=== PATIENT | female | born 1940 | race Caucasian/White ===

== ENCOUNTER 2019-09-21 13:17 | Outpatient (CLI) | payer MEDICARE, OTHER, SELFPAY ==
--- NOTE | 2019-09-21 18:57 | ONC CON_ITS ---
Dr. Angel New Patient Note Patient: Sophie Lopez Unit #: [id number]: 1940 Dicatated By: Fernando Angel M.D.Date of Visit: Sep 21, 2019 Onc MED New Patient/Consult Referring Physician: Dr. Fernando Luo M.D. Chief Complaint: Breast cancer. 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 She has a history of having undergone left modified radical mastectomy for node positive, ER positive breast cancer in 1990. More detailed information pertaining that procedure is not available. She did receive adjuvant chemotherapy with 6 cycles of CAF followed by 5 years of adjuvant hormonal therapy with tamoxifen. In December 2015 she was found to have an abnormal mammogram of the right breast. Ultrasound-guided needle core biopsy of a right breast mass at the 3 o'clock position on 02/02/2016 showed grade 1 infiltrating ductal carcinoma which was ER positive at 91% and MI positive at 92%. It was negative for overexpression of HER-2/marissa by IHC and by FISH. Core needle biopsy of a right axillary lymph node showed metastatic adenocarcinoma. She was given neoadjuvant hormonal therapy with anastrozole, and she then underwent right modified radical mastectomy on 06/27/2016. Pathology on the mastectomy showed grade 3 infiltrating ductal carcinoma measuring 1.9 x 1.2 cm, located in the upper middle region of the breast. There was involvement in 34 of 37 lymph nodes. She was given 4 cycles of adjuvant chemotherapy following the mastectomy, though the available records do not indicate the specific regimen which was administered. She then underwent postoperative radiation to the right chest wall, supraclavicular fossa, and axilla. She also continued adjuvant hormonal therapy with anastrozole. A restaging PET/CT on 10/26/2018 showed several sites of metastatic disease in the bone, including the T7 and L1 vertebral bodies, possible involvement in the L4 vertebral body, and involvement in the left ischium. At that point her hormonal therapy was changed to fulvestrant, which she has continued monthly. In March 2019 she was given some additional radiation for a small area of recurrence in the right chest wall. Her other medical illnesses have been limited to hypertension, GERD, and some chronic anxiety. She is a non-smoker. She is seen now for further management of the breast cancer. She has not been feeling good generally. She says her energy is not very good, and her activity is limited. ECOG score is 2. Her appetite is fair, but she has been losing weight, at least 6 pounds since April. She has not been having fever, night sweats, or hot flashes. Recently she has started having more pain, mainly across the lower back, in the shoulders, and to some extent in the chest area. She does complain that it hurts when she coughs or takes a deep breath. She has some shortness of breath. She has no GI/ complaints other than she has to get up at night 3 or 4 times to void. She does not complain of headache. She does complain of shaking, though it is variable. It does seem to get somewhat worse as the day goes on, and at times she does shake real bad. She also complains that she tends to be nervous. She does not complain of headache. She has some numbness in her right hand. She has no other focal neurologic symptoms. Past Medical History: Her medical history includes breast cancer, chronic anxiety, gastroesophageal reflux disease, and hypertension. Past Surgical History: Her surgical/procedural history includes hysterectomy, lower extremity vein stripping bilaterally, right modified radical mastectomy in 2017, partial colectomy for polyps in 2013, and left modified radical mastectomy in 1990. Medications: amLODIPine Besylate 1 Tablet (of 10 mg) Oral at bedtime, Bystolic 1 Tablet (of 10 mg) Oral daily, clonazePAM 1 Tablet (of 0.5 mg) Oral at bedtime, Glucosamine 2 Capsule Oral daily, HYDROcodone-Acetaminophen 1 Tablet (of 5-325 mg) Oral b.i.d. PRN, Ibuprofen 1 Tablet (of 200 mg) Oral at bedtime, Multivitamin 1 Tablet Oral daily, Omeprazole 1 Tablet (of 20 mg) Tablet, enteric coated Oral daily, Potassium Chloride ER 1 Capsule (of 10 meq) Capsule, controlled release Oral daily, Sertraline HCl 1 Tablet (of 25 mg) Oral daily, Tums 1 Tablet, chewable Oral PRN, Vitamin E 1 Capsule Oral daily Allergies: No Known Allergies. Social History: Ms. Lopez is and she is retired. She is a non-smoker. She does not drink alcohol. Family History: Father of stroke age 62. Mother at age 96 due to complications following hip fracture. She apparently also had cancer, type unknown to the patient. A brother of bone and liver cancer, primary site unknown to the patient. A paternal aunt had breast cancer. And 80 year-old sister has dementia and multiple sclerosis. Review Of Symptoms: Constitutional - She has not been feeling good. Her energy is very poor. She is mainly sedentary at home. Her appetite is poor and weight is down. No fever, night sweats, or hot flashes. ECOG score is 2, Eyes - No recent change in vision, ENMT - No sinus congestion/drainage. No mouth sores. No sore throat or difficulty swallowing. Her hearing has decreased, Hematologic/Lymphatic - No abnormal bruising or bleeding, Respiratory - She gets short of breath. She has a cough with pleuritic pain. No hemoptysis, Cardiovascular - No angina pain. No palpitations, Gastrointestinal - No nausea or vomiting. Her heartburn/acid is adequately managed with omeprazole. No diarrhea or constipation. No blood in the stool or black stools, Genitourinary (F) - No dysuria or hematuria. She has urinary frequency at night. No urgency or incontinence, Musculoskeletal - She is having pain across the middle of her back and in her shoulders, Integumentary - No skin complications, Neurologic - No headache or dizziness. She has numbness to her right fingers. No other focal neurologic symptoms. She has frequent episodes of shaking, Psychiatric - She has some anxiety. No depression. No insomnia. Vital Signs: Performed on Sep 21, 2019 13:52: 6, 20.69, 1.54 sq.m, 63.00 in, 96 %, 74 /min, 24 /min, 144/70 mm(hg) (HIGH), 98.8 F, and 116.8 lbs (HIGH). Physical Examination: Constitutional - She appears generally frail, Eyes - Sclerae nonicteric. Conjunctivae clear, ENMT - No lesions noted in the oral cavity, Neck - No mass or thyromegaly, Hematologic/Lymphatic - No cervical or clavicular axillary adenopathy, Respiratory - Lungs are clear with good air movement bilaterally, Cardiovascular - Heart rhythm is regular. There is no murmur, gallop, or rub noted, Breasts - There is residual nodularity/firmness and hyperpigmentation at the site of the recent radiation in the mid to lateral aspect of her right mastectomy incision. There are no other chest wall lesions noted. There is no axillary adenopathy, Abdomen - Soft and non-tender. Liver and spleen are not enlarged. There is no abdominal mass or ascites noted and there is no inguinal adenopathy, Back/Spine - No spine or CVA tenderness noted, Extremities - No edema. Pedal pulses are palpable bilaterally, Integumentary - No rashes. No suspicious skin lesions noted, Neurologic - She is generally shaky, though she does not appear to have actual tremor. There are no focal neurologic deficits noted. Lab/Imaging: Brain MRI on 06/16/2019 showed areas of enhancing nodularity adjacent to the dura in the right frontal and left frontoparietal regions. These appeared unchanged compared to previous study in November 2018. The reported differential included small meningiomas or metastatic disease. Continued follow-up was recommended. Impression: 1. Patient with grade 3 infiltrating ductal carcinoma of the right breast, ER/MI positive and HER-2/marissa negative, initially diagnosed in January 2016. 2. She was given neoadjuvant hormonal therapy followed by right modified radical mastectomy on 06/27/2016. Her disease was pathologic stage IIIB (pT1c, pN3, M0). She was given adjuvant chemotherapy followed by postoperative radiation to the right chest wall, supraclavicular fossa, and axilla, and she then continued adjuvant hormonal therapy with anastrozole. 3. She had PET/CT evidence of stage IV disease in October 2018 with multiple sites of bone involvement. Her hormonal therapy at that point was changed to fulvestrant. 4. She received additional radiation to the right chest wall for a small area of recurrence in March 2019. 5. She had previous treatment for node positive, ER positive infiltrating ductal carcinoma of the left breast which included left modified radical mastectomy 1990 followed by adjuvant chemotherapy with 6 cycles of CAF followed by 5 years of adjuvant tamoxifen. Her other medical illnesses include: 6. Hypertension. 7. GERD. 8. Chronic anxiety. Plan: As I suspect that she is showing disease progression on the fulvestrant, I will schedule restaging PET/CT. I discussed some options for further treatment, which will most likely include further hormonal therapy with exemestane but in combination with a CK4/6 inhibitor. I will also likely recommend starting monthly denosumab injections for the metastatic bone involvement. In addition, I will request a next generation sequencing study from the mastectomy specimen to determine whether she also may be eligible for any targeted therapies. Signed By: Fernando Angel M.D. <<Signature on File>>
== END 2019-09-21 13:18 | disposition home or self-care (01) ==
LOC: ONCMED 13:21
PROVIDERS: PCP Internal Medicine; Visit Provider Internal Medicine Medical Oncology
DX: C50.812 Malignant neoplasm of overlapping sites of left female breast (principal); Z17.0 Estrogen receptor positive status [ER+]; C79.51 Secondary malignant neoplasm of bone; C77.3 Secondary and unspecified malignant neoplasm of axilla and upper limb lymph nodes; I10 Essential (primary) hypertension; K21.9 Gastro-esophageal reflux disease without esophagitis; F41.9 Anxiety disorder, unspecified; Z90.13 Acquired absence of bilateral breasts and nipples; Z85.3 Personal history of malignant neoplasm of breast; Z92.21 Personal history of antineoplastic chemotherapy; Z79.818 Long term (current) use of other agents affecting estrogen receptors and estrogen levels; Z92.3 Personal history of irradiation
CPT/HCPCS: 99205

== ENCOUNTER 2019-09-29 10:49 | Outpatient (RCR) | payer MEDICARE, OTHER, SELFPAY ==
[2019-09-28] MEDS: morphine 4 mg/mL SDV 1 mL 2 MG SUBCUT (16:57)
--- NOTE | 2019-09-28 20:12 | ONC FU_ITS ---
Dr. Angel Patient Follow-Up Note Patient: Sophie Lopez Unit #: [id number]: 1940 Dicatated By: Fernando Angel M.D.Date of Visit:Sep 28, 2019 Onc Med Follow-up/Prog Note Chief Complaint: Breast cancer. 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 She has a history of having undergone left modified radical mastectomy for node positive, ER positive breast cancer in 1990. More detailed information pertaining that procedure is not available. She did receive adjuvant chemotherapy with 6 cycles of CAF followed by 5 years of adjuvant hormonal therapy with tamoxifen. In December 2015 she was found to have an abnormal mammogram of the right breast. Ultrasound-guided needle core biopsy of a right breast mass at the 3 o'clock position on 02/02/2016 showed grade 1 infiltrating ductal carcinoma which was ER positive at 91% and AK positive at 92%. It was negative for overexpression of HER-2/marissa by IHC and by FISH. Core needle biopsy of a right axillary lymph node showed metastatic adenocarcinoma. She was given neoadjuvant hormonal therapy with anastrozole, and she then underwent right modified radical mastectomy on 06/27/2016. Pathology on the mastectomy showed grade 3 infiltrating ductal carcinoma measuring 1.9 x 1.2 cm, located in the upper middle region of the breast. There was involvement in 34 of 37 lymph nodes. She was given 4 cycles of adjuvant chemotherapy following the mastectomy, though the available records do not indicate the specific regimen which was administered. She then underwent postoperative radiation to the right chest wall, supraclavicular fossa, and axilla. She also continued adjuvant hormonal therapy with anastrozole. A restaging PET/CT on 10/26/2018 showed several sites of metastatic disease in the bone, including the T7 and L1 vertebral bodies, possible involvement in the L4 vertebral body, and involvement in the left ischium. At that point her hormonal therapy was changed to fulvestrant, which she has continued monthly. In March 2019 she was given some additional radiation for a small area of recurrence in the right chest wall. Her other medical illnesses have been limited to hypertension, GERD, and some chronic anxiety. She is a non-smoker. I had seen her on 09/21/2019 for further management of her breast cancer. At that time she was having pain in multiple areas, and a subsequent staging PET/CT on 09/25/2019 confirmed significant disease progression with evidence of widespread osseous metastatic disease. An index lesion in the left sacrum measured 3.0 cm with SUV 7.1. There was noted to be involvement throughout the spinal column, including destruction of the T6 vertebral body with pathologic fracture. Other sites of involvement include the pelvis, proximal femurs, left clavicle, and proximal humeri. Inhomogeneous activity was noted in the liver, but with no discrete lesion identified. She returns for a follow-up visit. She has not been feeling good. She reports having less and less energy. Her activity is very limited. ECOG score is 3. Her appetite is not good. She occasionally has nausea. She has shortness of breath. She has pain in multiple areas, the most significant of which have been in the area of the right shoulder blade, the mid back on the left side, and the sternal area. She does get some relief with hydrocodone 5/APAP 325, but she has been taking it only twice daily due to concerns of opiate related side effects. Medications: amLODIPine Besylate 1 Tablet (of 10 mg) Oral at bedtime, Bystolic 1 Tablet (of 10 mg) Oral daily, clonazePAM 1 Tablet (of 0.5 mg) Oral at bedtime, Glucosamine 2 Capsule Oral daily, HYDROcodone-Acetaminophen 1 Tablet (of 5-325 mg) Oral b.i.d. PRN, Ibuprofen 1 Tablet (of 200 mg) Oral at bedtime, Multivitamin 1 Tablet Oral daily, Omeprazole 1 Tablet (of 20 mg) Tablet, enteric coated Oral daily, Potassium Chloride ER 1 Capsule (of 10 meq) Capsule, controlled release Oral daily, Sertraline HCl 1 Tablet (of 25 mg) Oral daily, Tums 1 Tablet, chewable Oral PRN, Vitamin E 1 Capsule Oral daily Allergies: No Known Allergies. Vital Signs: Performed on Sep 28, 2019 16:18 Height - 63.00 in Weight - 115.4 lbs (LOW) BSA - 1.53 sq.m BMI - 20.44 Temperature - 98.1 F (LOW) Pulse - 73 /min Respiration - 22 /min BP - 174/70 mm(hg) (HIGH) O2 Sat - 96 % Pain - 8 Impression: 1. Patient with grade 3 infiltrating ductal carcinoma of the right breast, ER/AK positive and HER-2/marissa negative, initially diagnosed in January 2016. 2. She was given neoadjuvant hormonal therapy followed by right modified radical mastectomy on 06/27/2016. Her disease was pathologic stage IIIB (pT1c, pN3, M0). She was given adjuvant chemotherapy followed by postoperative radiation to the right chest wall, supraclavicular fossa, and axilla, and she then continued adjuvant hormonal therapy with anastrozole. 3. She had PET/CT evidence of stage IV disease in October 2018 with multiple sites of bone involvement. Her hormonal therapy at that point was changed to fulvestrant. 4. She received additional radiation to the right chest wall for a small area of recurrence in March 2019. 5. She had previous treatment for node positive, ER positive infiltrating ductal carcinoma of the left breast which included left modified radical mastectomy 1990 followed by adjuvant chemotherapy with 6 cycles of CAF followed by 5 years of adjuvant tamoxifen. Her other medical illnesses include: 6. Hypertension. 7. GERD. 8. Chronic anxiety. The patient has evidence of disease progression on fulvestrant with her restaging PET/CT on 09/25/2019 showing evidence of widespread bony metastatic disease. There was associated destruction of the T6 vertebral body with pathologic fracture. She is having significant pain at multiple sites and she has fairly rapidly declining performance status. 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 Plan: The PET/CT findings were reviewed with the patient and her family, and we discussed the clinical implications. She has obvious disease progression, and with her prior chemotherapy exposure and declining performance status, my preference is to proceed with a trial of further hormonal therapy with exemestane 25 mg daily in combination with abemaciclib at a standard dosage of 150 mg twice daily, subject to verification of insurance coverage. I also will plan to start monthly denosumab injections when she returns to initiate her treatment. In the meantime, I will review the PET/CT with Dr. Hurst for consideration of palliative radiation. At her request, she is being given a small dose of morphine subcutaneously prior to returning home, as she has been having significant pain during the visit. Depending on how she tolerates it, I may consider changing her opiate to a small dose of either more phone or hydromorphone. [id number] time with patient was more than 30 minutes, greater than 50% spent in counseling/discussion. Signed By: Fernando Angel M.D. <<Signature on File>>
--- NOTE | 2019-09-30 11:38 | N.ONRAD NP_ITS ---
Radiation Oncology New Patient Visit Patient: Sophie Lopez MR#: [id number] : 1940 Age: 79 Sex: Female Dictated by: Dr. Shiva Hurst Date of Service: 09/29/2019 Referring Physician(s) : Dr. Angel Diagnosis: -) Right Breast (dx 01/2016): ypT1c ypN3a grade 3 infiltrating ductal carcinoma, ER/ME strongly positive, HER-2/marissa negative. She was treated with neoadjuvant endocrine therapy (anastrozole) followed by a right modified radical mastectomy (06/2016). Pathology revealed grade 3 infiltrating ductal carcinoma measuring 1.9 x 1.2 cm, negative postsurgical margins, positive lymphovascular invasion, and 34 of 37 lymph nodes were positive. She then received 4 cycles of adjuvant chemotherapy followed by comprehensive radiation therapy to the right chest wall and draining lymphatics (March in [place] ~33 fractions in 2016). This was followed by further endocrine therapy. Per medical report, the patient experienced right chest wall tumor recurrence in 03/2019 which was treated with surgical resection and ???6 additional fractions of radiation??? (complete radiation records have been requested). In October 2018, she had PET/CT evidence of metastasis in multiple sites of bone. She was then treated with fulvestrant. -) Left Breast: Status post left modified radical mastectomy (06/1990). Pathology revealed infiltrating ductal carcinoma, 2 out of 9 lymph nodes positive, ER strongly positive, ME negative. She then received 6 cycles of CAF adjuvant systemic therapy followed by 5 years of adjuvant endocrine therapy via a clinical trial (tamoxifen). The patient believes that she did not receive adjuvant radiation therapy. Complete medical records are unavailable to me. Purpose of Visit: Discuss the role of radiotherapy with palliative intent. History of Present Illness: The patient is a 79-year-old female with the above diagnosis and summarized treatment history. She is seen today in consultation due to severe back pain. Dr. Angel has recently prescribed opiate pain medication. Her most recent PET/CT (09/25/2019) revealed widespread FDG avid osseous metastatic disease, a pathologic fracture of T6, questionable activity in segment 4A/B and the left lobe of the liver, and a left sacral lesion measuring 3 cm. The patient currently lives with her who is unable to provide adequate care, and now the patient's daughter is currently visiting from [place]. Imaging Review: I reviewed the radiographic images discussed above. Current Medications: Abemaciclib, amLODIPine Besylate, bystolic, clonazePAM, dilaudid, glucosamine, hYDROcodone-Acetaminophen, ibuprofen, multivitamin, omeprazole, potassium Chloride ER, sertraline HCl, tums, vitamin E. Allergies: No Known Allergies Medical History: - Anxiety, - breast cancer, - gastroesophageal reflux disease, - hypertension. No history of collagen vascular disease. No previous radiation therapy. Surgical History: Hysterectomy, left modified radical mastectomy in 1990, lower extremity vein stripping bilaterally, partial colectomy for polyps in 2013 and right modified radical mastectomy on 06/27/2016. Family History: Father is at age 62 having experienced cerebral vascualr accident. Mother is at age 96 having experienced broken hip. Brother is having experienced bone cancer, and liver cancer. Sister is alive having experienced alzhiemers. Father of stroke age 62. Mother at age 96 due to complications following hip fracture. She apparently also had cancer, type unknown to the patient. A brother of bone and liver cancer, primary site unknown to the patient. A paternal aunt had breast cancer. And 80 year-old sister has dementia and multiple sclerosis. Social History: Last screened on 09/28/2019 - Never smoked. Last screened on 09/28/2019 - Never drank. Current Complaints / Review of Systems: Constitutional - Complains of a poor appetite. Complains of moderate fatigue. Denies fever, night sweats and change in weight. Allergic/Immunologic - No known allergies. Eyes - Denies blurred vision. ENMT - Complains of a moderate hearing impairment. Complains of sputum production Reports increased sputum in mouth of the morning. Sleeps with mouth open.. Denies dysphagia, ear pain, epistaxis, mouth dryness, oral bleeding, altered taste and tinnitus. Neck - Denies neck masses, neck pain, decreased range of motion and swelling of the neck. Integumentary - Complains of bruising Bruises easily.. Complains of mildly dry skin. Denies rash. Breasts - Complains of a right breast mass(es) Left breast mastectomy at age 51 years, right breast mastectomy in 06/2016.. Complains of moderate pain in the right breast Right mastectomy site. Cardiovascular - Denies arrhythmias, chest pain, dyspnea, edema, orthopnea and palpitations. Respiratory - Denies cough, dyspnea, hemoptysis, hiccoughs, pleuritic chest pain and wheezing. Gastrointestinal - Complains of moderate nausea which is relieved by rest. Denies abdominal pain, change in bowel habits, constipation, diarrhea, heartburn / dyspepsia, hematochezia, hemorrhoids, melena / GI bleeding, pain / cramping and vomiting. Genitourinary (F) - Complains of occasional incontinence associated with urgency. Complains of nocturia 1-3 time/night. Complains of urgency associated with nocturia. Denies dysuria, frequency, genital masses, hematuria and urine color change. Musculoskeletal - Complains of severe bone pain which is relieved or lessened by narcotic analgesics and this condition is worsening. Complains of severe joint pain. Complains of muscle weakness which is mild in nature associated with pain. Complains of decreased range of motion associated with pain which is relieved by pain management. Neurologic - Complains of abnormal gait Gait is unsteady, needs assistance.. Denies disorientation, dizziness, headaches, insomnia, motor weakness, sensory problems, paralysis, seizure and stroke. Psychiatric - Complains of depression Taking Sertraline, is improving. Endocrine - Denies diabetes, hot flashes and thyroid disease. Hematologic/Lymphatic - Complains of easy bruising Bruises easily.. Denies tender or enlarged lymph nodes.. Vital Signs: Performed on 09/29/2019 3:55 PM BMI - 20.371 kg/m2, Height - 63.00 in, Weight - 115.0 lbs, Temperature - 98.7 f, Pulse - 67, Respiration - 18, O2 Sat - 97 % and BP - 138/ 73 mm(hg). Physical Exam: GENERAL:??? The patient is alert, and in no acute distress. HEENT:??? Head is normocephalic. Face is symmetric. External ocular movements are intact. Sclera and conjunctivae are non erythematous. NECK:??? Trachea is midline.??? Thyroid is not enlarged by palpation.??? LYMPH NODES:??? There is no cervical, supraclavicular, or axillary adenopathy bilaterally. LUNGS:??? Clear to auscultation bilaterally. Respiratory movement is unlabored. Tenderness to gentle palpation in the cervical spine and mid to low thoracic spine is appreciated. HEART:??? Regular rate and rhythm. BREASTS:???A bilateral mastectomy scar is appreciated. The patient has tenderness, nodularity and subcutaneous fibrotic changes most prominent in the right lateral mastectomy scar. She has no clinical evidence of tumor erosion through the skin. ABDOMEN:??? Soft, nontender, without palpable mass.??? No hepatosplenomegaly. EXTREMITIES:??? The patient has difficulty lifting her bilateral arms. 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 Cranial nerves II-XII are intact and without focal deficits.??? Psych: Affect is normal. Skin: Cursory review of the skin reveals no obvious lesions concerning for malignancy. Performance Status: 3 - Capable of only limited self-care, confined to bed or chair more than 50% of waking hours. (ECOG) Assessment/Plan: The patient is a 79-year-old female with a history of bilateral breast cancer (left 1990; right 01/2016 as described above). She was first known to have radiographic evidence of osseous metastasis in 2018, and now she has widespread metastatic progression on fulvestrant per a recent PET/CT (09/25/2019). The patient is severely symptomatic with respect to back pain. On physical exam today, she shared that the pain is most severe in the cervical spine and mid/low thoracic spine. This correlates to FDG avid disease seen on PET/CT We discussed palliative radiation therapy to the C5-C8; T5-T9; and [id number] to a total dose of 30 Gy in 10 fractions. We discussed a 60-80% chance of objectively improving her pain as measured by a reduced need for pain medication, at least until progression again occurs. We discussed radiation treatment logistics, and potential acute and late side effects in detail (i.e., fatigue and esophagitis). The patient verbalized understanding of the risks/benefits of radiotherapy and the patient has agreed to proceed as recommended. Therefore the plan is: -) Obtain prior radiation records -) Begin Radiation Therapy planning next Friday. -) In light of the prior radiation therapy, we will need to utilize IMRT techniques and fuse the CT simulation data set with the most recent PET/CT. Signed by: 09/30/2019 11:36:29 AM <<Signature on File>> Time spent with patient: CPT Code: CPT Code:
== END 2019-10-02 06:00 | disposition home or self-care (01) ==
LOC: ONCMED 10:49
PROVIDERS: PCP Internal Medicine; Visit Provider Radiology Radiation Oncology
DX: C50.811 Malignant neoplasm of overlapping sites of right female breast (principal); C79.51 Secondary malignant neoplasm of bone; C77.3 Secondary and unspecified malignant neoplasm of axilla and upper limb lymph nodes; G89.3 Neoplasm related pain (acute) (chronic); Z17.0 Estrogen receptor positive status [ER+]; Z90.13 Acquired absence of bilateral breasts and nipples; Z85.3 Personal history of malignant neoplasm of breast; K21.9 Gastro-esophageal reflux disease without esophagitis; F41.9 Anxiety disorder, unspecified; Z79.891 Long term (current) use of opiate analgesic; Z92.21 Personal history of antineoplastic chemotherapy; Z92.23 Personal history of estrogen therapy
CPT/HCPCS: 96372; 99214; 99215; J2270

== ENCOUNTER 2019-10-02 14:06 | Inpatient (IN) | payer MEDICARE, OTHER, SELFPAY ==
[2019-10-02 14:10] VITALS: BP 139/65; PULSE 70; RESP 16; TEMP 36.5; O2SAT 90; BMI 24.7
--- NOTE | 2019-10-02 15:06 | CTR_ITS ---
PROCEDURE INFORMATION: Exam: CT Head Without And With Contrast Exam date and time: 10/02/2019 4:07 PM Age: 79 years old Clinical indication: Speech disturbance and weakness, extremity; Right; Unspecified; Patient HX: HX of breast CA w mets C/O speech issues and R sided weakness; Additional info: Metastatic breast CA, AMS, R sided weakness, slurred speach TECHNIQUE: Imaging protocol: Computed tomography of the head without and with intravenous contrast. Radiation optimization: All CT scans at this facility use at least one of these dose optimization techniques: automated exposure control; mA and/or kV adjustment per patient size (includes targeted exams where dose is matched to clinical indication); or iterative reconstruction. Contrast material: VISI 320; Contrast volume: 95 ml; Contrast route: INTRAVENOUS (IV); COMPARISON: MRI Head w/wo* [id number] 06/16/2019 1:00 PM RADIATION DOSE METRICS: Total DLP (mGy-cm): 1265.29 FINDINGS: Brain: There is volume loss and periventricular low density compatible with chronic small vessel disease changes. There is no acute hemorrhage, edema or mass effect. Ventricles: Normal. No ventriculomegaly. Bones/joints: Unremarkable. No acute fracture. Sinuses: Visualized sinuses are unremarkable. No fluid levels. Mastoid air cells: Visualized mastoid air cells are well aerated. Soft tissues: Unremarkable. Other findings: No mass. No enhancing lesion. CT/CT head wo/w con [id number] IMPRESSION: No acute intracranial abnormality. No enhancing mass. Radiation Dose CTDIVOL = (mGy): DLP = 1265.29 (mGy-cm)
--- NOTE | 2019-10-02 15:08 | XRR_ITS ---
PROCEDURE INFORMATION: Exam: XR Chest, 1 View Exam date and time: 10/02/2019 3:09 PM Age: 79 years old Clinical indication: Cough and dyspnea; Additional info: Dyspnea/cough TECHNIQUE: Imaging protocol: XR of the chest Views: 1 view. COMPARISON: No relevant prior studies available. FINDINGS: Lungs: There is interstitial prominence compatible with fibrosis, bronchitis, viral pneumonitis or mild interstitial edema. Pleural space: Unremarkable. No pleural effusion. No pneumothorax. Heart/Mediastinum: The heart is enlarged. Bones/joints: There is osteopenia with diffuse degenerative changes. There is an acute fracture of the lateral aspect of the right 8th rib. Probable old left posterior rib fracture deformities are noted. There are clips in the bilateral axilla. XR/XR chest 1V portable [id number] IMPRESSION: 1. There is interstitial prominence compatible with fibrosis, bronchitis, viral pneumonitis or mild interstitial edema. 2. There is an acute fracture of the lateral aspect of the right 8th rib. No pneumothorax.
--- NOTE | 2019-10-02 15:08 | ECG_ITS ---
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 Measurements Intervals [place] Rate: 62 P: 34 NH: 217 QRS: -24 QRSD: 95 T: 47 QT: 405 QTc: 413 Interpretive Statements SINUS RHYTHM WITH FIRST DEGREE AV BLOCK VOLTAGE CRITERIA FOR LVH [MEETS CRITERIA IN ONE OF: R(aVL), S(V1), R(V5), R(V5/V6)+S(V1)] INFERIOR MYOCARDIAL INFARCTION , OF INDETERMINATE AGE [40+ ms Q WAVE AND/OR ST/T ABNORMALITY IN II/aVF] No previous ECG available for comparison Electronically Signed On 10-03-2019 18:10:44 CDT by Delonte Finn M.D. [id number]
--- NOTE | 2019-10-02 15:12 | W.ED.NEUROSD ---
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 She also has severe middle back pain consistent with a T6 pathologic compression fracture seen on previous imaging. Her accompanies her and provides much of the history. Onset (ago): day(s) Timing confirmed by: spouse Location: speech, right face and right arm Severity: severe Quality: weak and constant Relieving factors: none Exacerbating factors: none Context: gradual onset On Anticoagulants: No Associated symptoms: Deny no associated symptoms, chest pain, cough, diaphoresis, fevers/chills, nausea or vomiting Treatments Prior to Arrival: none Review of Systems Const: Denies: diaphoresis ENMT: Denies: throat pain, ear or mastoid pain, nasal discharge or nasal congestion Card: Denies: chest pain Resp: Denies: dyspnea, productive cough or non-productive cough GI: Denies: abdominal pain, nausea, vomiting, hematemesis, coffee ground emesis, diarrhea, constipation, bloating, hematochezia or melena : Denies: flank pain, difficulty voiding, dysuria, urinary frequency or urinary urgency Skin/Breast: Denies: rash or pruritus PFSH ED PFSH: Medical History Anxiety Breast cancer metastasized to bone (~12/2015) Grade 3 infiltrating ductal carcinoma of the right breast, ER/TX positive and HER-2/marissa negative. Received adjuvant chemo, radiation, hormonal therapy. GERD (gastroesophageal reflux disease) Hypertension Surgical History History of hysterectomy History of modified radical mastectomy of left breast (~1990) History of modified radical mastectomy of right breast (~06/2016) History of partial colectomy (~2013) for polyps History of vein stripping bilateral Family History Father Stroke Mother Cancer Brother Cancer Sister Dementia Multiple sclerosis Family/Other Breast cancer Social History Smoking and tobacco status: never smoked Alcohol intake: never Household members: spouse Marital status: NIH stroke score NIHSS: Level Of Consciousness - 1a: 2 Level Of Consciousness Questions - 1b: One Correct Level Of Consciousness Commands - 1c: One Correct Best Gaze - 2: Normal Visual Diaz - 3: No Visual Loss Facial Palsy - 4: Normal Motor Arm Right - 5: No Drift Motor Arm Left - 5: Drift Motor Leg Right - 6: No Drift Motor Leg Left - 6: Drift Limb Ataxia - 7: Present In Two Limbs Sensory - 8: Mild To Moderate Loss Best Language - 9: Mild/Moderate Aphasia Dysarthia - 10: Mild/Moderate Dysarthia Extinction And Inattention - 11: 1 Score: Total Score: 12 Physical Exam Const: COMMON NORMALS: no acute distress GENERAL APPEARANCE: cooperative and comfortable HENMT: COMMON NORMALS: normocephalic, atraumatic and hearing grossly normal bilaterally HEAD & SCALP: normocephalic and atraumatic Eye: COMMON NORMALS: Equal, round and reactive pupils present, EOMs intact bilaterally, conjunctivae normal and no scleral icterus CONJUNCTIVA: Yes conjunctivae normal PUPIL: Yes Equal, round and reactive pupils present Neck/C-Spine: COMMON NORMALS: full ROM, no lymphadenopathy, supple and no JVD Lymph: LYMPHATIC: no lymphadenopathy noted and no lymphedema noted Resp: COMMON NORMALS: normal respiratory effort, No retractions, No use of accessory muscles and clear to auscultation bilaterally AUSCULTATION: clear to auscultation bilaterally Cardio: COMMON NORMALS: no JVD, regular rate, regular rhythm and No murmurs present (Cardio) RATE: regular rate RHYTHM: regular rhythm GI: COMMON NORMALS: Soft to palpation and No hepatosplenomegaly present AUSCULTATION: Yes normoactive bowel sounds PALPATION: Yes Soft to palpation, No Tenderness to palpation present (GI), No Guarding due to palpation present (GI) and Yes No hepatosplenomegaly present Extremity: COMMON NORMALS: normal to inspection, capillary refill normal, no clubbing, cyanosis or edema, no calf tenderness and no pedal edema Skin: COMMON NORMALS: no rashes or lesions noted GENERAL SKIN EXAM: no rashes or lesions noted Course Vital Signs: Vital signs: Vital Signs Temperature 97.8 F 10/05/19 04:00 Pulse Rate 68 10/05/19 04:00 Respiratory Rate 18 10/05/19 04:00 Blood Pressure 150/69 10/05/19 04:00 Pulse Oximetry 95 10/05/19 03:46 MDM - Neuro Symptoms/Deficit MDM Narrative: Medical decision making narrative: Some of her stroke score I think can be attributed to generalized deterioration and overall weakness. Although she does seem to by all accounts have suffered a stroke a timeframe excludes this from any kind of intervention at this point as well as her history of cancer. Patient is severely limited in her ability to manage her own ADLs and will think her can care for her at this point. Think she needs to be admitted for further evaluation for stroke and assessment of her ability to manage ADLs and pain control. Some of this could be due to an increase in narcotics affecting her ability to be scored for the stroke score. Discussed with Dr. Angel who initially sent her over also discussed with Dr. Singh will go ahead and admit Lab Data: Labs: Lab Results 10/02/19 10/02/19 10/02/19 Range/Units 01:40 15:25 15:25 WBC 9.3 (4.0-10.0) 10^3/ uL RBC 3.55 L (4.1-5.3) 10^6/u L Hgb 10.4 L (11.5-15.3) g/dL Hct 32.7 L (37.0-47.0) % MCV 92.1 (81-99) fL MCH 29.3 (28.0-34.0) pg MCHC 31.8 (30.0-36.0) g/dL RDW 17.5 H (12.1-15.1) % Plt Count 47 L (130-400) 10^3/c mm MPV 9.3 (7.4-10.4) fL Neut % (Auto) 70.2 % Lymph % (Auto) 14.3 % [place] % (Auto) 12.2 % Eos % (Auto) 2.4 % Baso % (Auto) 0.5 % Neut # (Auto) 6.49 (1.8-7.7) 10^3/u L Lymph # (Auto) 1.3 (0.8-4.8) 10^3/u L [place] # (Auto) 1.1 H (0.2-0.9) 10^3/u L Eos # (Auto) 0.2 (0.0-0.8) 10^3/u L Baso # (Auto) 0.1 (0.0-0.1) 10^3/u L Nucleated RBC % (a uto) 0.4 % Nucleated RBCs # 0.0 /100WBC Sodium (136-145) mmol/L Potassium (3.5-5.1) mmol/L Chloride (98-107) mmol/L Carbon Dioxide (22-29) mmol/L Anion Gap (5-19) BUN (8-23) mg/dL Creatinine (0.5-0.9) mg/dL GFR Calculation Glucose (65-115) mg/dL Calculated Osmolal ity (285-295) mOsm/k g Lactic Acid 0.8 (0.5-2.2) mmol/L Calcium (8.5-10.5) mg/dL Total Bilirubin (0.15-1.2) mg/dL AST (0-32) U/L ALT (0-33) U/L Alkaline Phosphata se (35-105) IU/L Creatine Kinase (26-192) U/L Total Protein (6.6-8.7) g/dL Albumin (3.5-5.2) g/dL Globulin (1.3-4.6) g/dL Lipase (13-60) U/L Urine Color Yellow (Yellow) Urine Appearance Sl hazy (CLEAR) Urine pH 5 (5-7) Ur Specific Gravit y 1.015 (1.005-1.030) Urine Protein Neg (Negative) Urine Glucose (UA) Norm (Normal) Urine Ketones Negative (Negative) Urine Blood Neg (Negative) Urine Nitrate Positive H (Negative) Urine Bilirubin Neg (NEGATIVE) Urine Urobilinogen Norm (Negative) mg/dL Ur Leukocyte Malini ase Trace H (Negative) Urine RBC 0-4 H (0-2) /hpf Urine WBC 15-25 H (0-5) /hpf Ur Squamous Epith Cells 0-4 H (0-5) Amorphous Sediment 1+ Urine Bacteria 3+ H (NONE) 08/15/20 Range/Units 15:25 WBC (4.0-10.0) 10^3/ uL RBC (4.1-5.3) 10^6/u L Hgb (11.5-15.3) g/dL Hct (37.0-47.0) % MCV (81-99) fL MCH (28.0-34.0) pg MCHC (30.0-36.0) g/dL RDW (12.1-15.1) % Plt Count (130-400) 10^3/c mm MPV (7.4-10.4) fL Neut % (Auto) % Lymph % (Auto) % [place] % (Auto) % Eos % (Auto) % Baso % (Auto) % Neut # (Auto) (1.8-7.7) 10^3/u L Lymph # (Auto) (0.8-4.8) 10^3/u L [place] # (Auto) (0.2-0.9) 10^3/u L Eos # (Auto) (0.0-0.8) 10^3/u L Baso # (Auto) (0.0-0.1) 10^3/u L Nucleated RBC % (a uto) % Nucleated RBCs # /100WBC Sodium 134 L (136-145) mmol/L Potassium 4.3 (3.5-5.1) mmol/L Chloride 101 (98-107) mmol/L Carbon Dioxide 21 L (22-29) mmol/L Anion Gap 16.3 (5-19) BUN 32 H (8-23) mg/dL Creatinine 1.2 H (0.5-0.9) mg/dL GFR Calculation Not Reportable Glucose 84 (65-115) mg/dL Calculated Osmolal ity 274 L (285-295) mOsm/k g Lactic Acid (0.5-2.2) mmol/L Calcium 10.1 (8.5-10.5) mg/dL Total Bilirubin 0.5 (0.15-1.2) mg/dL AST 147 H (0-32) U/L ALT 39 H (0-33) U/L Alkaline Phosphata se 111 H (35-105) IU/L Creatine Kinase 55 (26-192) U/L Total Protein 7.1 (6.6-8.7) g/dL Albumin 3.7 (3.5-5.2) g/dL Globulin 3.4 (1.3-4.6) g/dL Lipase 112 H (13-60) U/L Urine Color (Yellow) Urine Appearance (CLEAR) Urine pH (5-7) Ur Specific Gravit y (1.005-1.030) Urine Protein (Negative) Urine Glucose (UA) (Normal) Urine Ketones (Negative) Urine Blood (Negative) Urine Nitrate (Negative) Urine Bilirubin (NEGATIVE) Urine Urobilinogen (Negative) mg/dL Ur Leukocyte Malini ase (Negative) Urine RBC (0-2) /hpf Urine WBC (0-5) /hpf Ur Squamous Epith Cells (0-5) Amorphous Sediment Urine Bacteria (NONE) Discharge Plan Discharge Patient Disposition: Admitted As Inpatient Admit Provider: Nguyễn Singh Clinical Impression: Breast cancer metastasized to bone, GERD (gastroesophageal reflux disease), Hypertension, Anxiety, Pain of metastatic malignancy, Acute encephalopathy, Acute kidney injury Condition: Stable Interventions: ED Discharge Assessment Last Done: 10/02/19 18:28 ED Charges Last Done: 10/02/19 18:28 Discharge Date/Time: 10/02/19 18:51 Coding Level of Care Code ED Senior Product Development Manager for Lynette Kauffman
[2019-10-02] MEDS: sodium chloride 0.9% 1,000 ML 999 ML IV (15:20)
[2019-10-02] MEDS: ondansetron 2 mg/ML SDV 2 mL 4 MG IVP (15:21)
[2019-10-02] MEDS: morphine 4 mg/mL SDV 1 mL IVP (15:21)
[2019-10-02 15:37] LABS: Basophils # 0.1 10^3/uL (0.0-0.1); Basophils % 0.5 %; Eosinophils # 0.2 10^3/uL (0.0-0.8); Eosinophils % 2.4 %; Hematocrit 32.7 % (37.0-47.0); Hemoglobin 10.4 g/dL (11.5-15.3); Lymphocytes # 1.3 10^3/uL (0.8-4.8); Lymphocytes % 14.3 %; Mean Corpuscular HGB Conc 31.8 g/dL (30.0-36.0); Mean Corpuscular Hemoglobin 29.3 pg (28.0-34.0); Mean Corpuscular Volume 92.1 fL (81-99); Mean Platelet Volume 9.3 fL (7.4-10.4); Monocytes # 1.1 10^3/uL (0.2-0.9); Monocytes % 12.2 %; Neutrophils # 6.49 10^3/uL (1.8-7.7); Neutrophils % 70.2 %; Nucleated Red Blood Cells % 0.4 %; Platelet Count 47 10^3/cmm (130-400); Red Blood Count 3.55 10^6/uL (4.1-5.3); Red Cell Distribution Width 17.5 % (12.1-15.1); White Blood Count 9.3 10^3/uL (4.0-10.0)
[2019-10-02 15:58] LABS: Alanine Aminotransferase 39 U/L (0-33); Albumin Level 3.7 g/dL (3.5-5.2); Alkaline Phosphatase 111 IU/L (35-105); Anion Gap 16.3 (5-19); Aspartate Amino Transferase 147 U/L (0-32); Blood Urea Nitrogen 32 mg/dL (8-23); Calcium 10.1 mg/dL (8.5-10.5); Carbon Dioxide 21 mmol/L (22-29); Chloride 101 mmol/L (98-107); Creatine Phosphokinase 55 U/L (26-192); Globulin 3.4 g/dL (1.3-4.6); Glucose 84 mg/dL (65-115); Lactic Sepsis W/Reflex 0.8 mmol/L (0.5-2.2); Lipase 112 U/L (13-60); Osmolality Calculated 274 mOsm/kg (285-295); Potassium 4.3 mmol/L (3.5-5.1); Sodium 134 mmol/L (136-145); Total Bilirubin 0.5 mg/dL (0.15-1.2); Total Protein 7.1 g/dL (6.6-8.7)
[2019-10-02] MEDS: iodixanol 320 mg/mL 100mL Btl IV (16:23)
--- NOTE | 2019-10-02 16:32 | PC.NURSE ---
Patient returned from CT with Speech Pathology Supervisor, Patient resting in bed now.
--- NOTE | 2019-10-02 17:49 | PC.NURSE ---
Attempted to Call report and they advised that the room had not been assigned to a nurse yet and ask that I call back.
[2019-10-02 18:28] VITALS: BP 141/57; PULSE 64; RESP 16; O2SAT 94
--- NOTE | 2019-10-02 18:41 | PC.NURSE ---
Covid Swab obtained and sent to lab.
--- NOTE | 2019-10-02 19:46 | P.HP_ITS ---
Providers/Chief Complaint Admitting Physician: Nguyễn Singh Primary Care Provider: Fernando Luo DO Chief Complaint: URINARY RETENTION History of Present Illness Sophie Lopez is a 79 year old female who presented to the emergency room with mental status changes. She is not able to provide any history. Over the last few days she has been having increasing alteration of mental status, difficulty speaking and weakness. She saw Dr. Angel on September 27. Mrs. 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 PET scan done on September 24 showed widespread bony metastases. Patient was referred to radiation oncology for evaluation for palliative radiation with plan to start that on October 04 I believe. Because of increasing pain, narcotic pain management was adjusted. Since that timeframe Mrs. Lopez has been progressively declining. She was worked up in the emergency room for possibility of stroke. She does appear to have a very faint left-sided facial droop with loss of prominence in the nasolabial fold and loss of forehead creases. She is not fully cooperative with evaluation at the moment otherwise but no other gross abnormalities are identified. CT of the head did not show any acute metastatic disease and was done with contrast. With her mental status changes and declining functional status she is being admitted for further evaluation and treatment. She has thrombocytopenia, some mild elevation in transaminases, what I suspect is acute kidney injury. Available comparative labs we have are from 2015. Patient had been seeing a doctor in [place] and recently switched to Dr. Angel. Review of Systems General: Reports: ROS unobtainable due to mental status Medications/Allergies Home Medications Medication Instructions Recorded Confirmed Last Taken Type amlodipine 10 mg PO DAILY 10/02/19 10/02/19 10/01/19 History clonazepam 1 mg PO BEDTIME 10/02/19 10/02/19 10/01/19 History exemestane 25 mg PO DAILY 10/02/19 10/02/19 Unknown History glucosamine sulfate [Glucosamine] 1,000 mg PO DAILY 10/02/19 10/02/19 10/02/19 History hydrocodone-acetaminophen 1 tab PO BID PRN 10/02/19 10/02/19 10/02/19 History hydromorphone 0.5 - 1 mg PO Q4H PRN 10/02/19 10/02/19 10/02/19 History ibuprofen 200 mg PO BEDTIME PRN 10/02/19 10/02/19 10/01/19 History multivitamin 1 tab PO DAILY 10/02/19 10/02/19 10/02/19 History nebivolol [Bystolic] 10 mg PO DAILY 10/02/19 10/02/19 10/02/19 History omeprazole 20 mg PO DAILY 10/02/19 10/02/19 10/01/19 History potassium chloride 10 meq PO DAILY 10/02/19 10/02/19 10/02/19 History vitamin E 400 unit PO DAILY 10/02/19 10/02/19 10/02/19 History Allergies Allergy/AdvReac Type Severity Reaction Status Date / Time No Known Allergies Allergy Verified 10/02/19 14:21 PFSH Acute PFSH: Medical History (Updated 10/03/19 @ 07:18 by Bea Laird MD) Anxiety Breast cancer metastasized to bone (~12/2015) Grade 3 infiltrating ductal carcinoma of the right breast, ER/IL positive and HER-2/marissa negative. Received adjuvant chemo, radiation, hormonal therapy. GERD (gastroesophageal reflux disease) Hypertension Surgical History (Updated 10/02/19 @ 19:59 by Bea Laird MD) History of hysterectomy History of modified radical mastectomy of left breast (~1990) History of modified radical mastectomy of right breast (~06/2016) History of partial colectomy (~2013) for polyps History of vein stripping bilateral Family History (Updated 10/02/19 @ 20:01 by Bea Laird MD) Father Stroke Mother Cancer Brother Cancer Sister Dementia Multiple sclerosis Family/Other Breast cancer Social History (Updated 10/02/19 @ 19:59 by Bea Laird MD) Smoking and tobacco status: never smoked Alcohol intake: never Substance/Drug Use: never Household members: spouse Marital status: Vitals/I&O/Wt Last Vital Signs Temp 97.7 F 10/02/19 14:10 Pulse 64 10/02/19 18:28 Resp 16 10/02/19 18:28 BP 141/57 10/02/19 18:28 Pulse Ox 94 10/02/19 18:28 Weight last 48 hrs Weight 63.503 kg Physical Exam Const: OTHER: Lethargic, awakens, makes eye contact but does not answer any questions HENMT: OTHER: Mild bitemporal wasting noted, oropharynx with dry mucous me mbranes, no tongue lesions noted Eye: OTHER: Pupils equally round, about 3 mm, sluggish bilaterally but reactive. Right eye is half brown half blue, left eye is blue. Neck/C-Spine: OTHER: Decreased range of motion at the neck I believe secondary to pain. She is known to have bony metastases. Can turn head side to side a little bit Resp: OTHER: Clear to auscultation without any wheezes or rhonchi noted Cardio: OTHER: Regular rate and rhythm, no murmurs, pulses are equal GI: OTHER: Abdomen soft, nontender, nondistended, positive bowel sounds : OTHER: Deferred Back/Pelvis: OTHER: Back is tender to palpation along the thoracic spine Extremity: NARRATIVE EXTREMITY EXAM: MAC, no acutely inflamed joints noted Neuro: OTHER: Patient moves all extremities during the course of examination, face appears grossly symmetric, she is not fully cooperative with evaluation but extraocular movements look grossly intact Skin: NARRATIVE SKIN EXAM: Very dry skin, pale, likely doughy, did not note prominent petechiae Data : 10/03/19 04:19 10/03/19 04:19 Other Labs: Short CBC 10/02/19 10/02/19 Range/Units 15:25 15:25 WBC 9.3 (4.0-10.0) 10^3/uL Hgb 10.4 L (11.5-15.3) g/dL Hct 32.7 L (37.0-47.0) % Plt Count 47 L (130-400) 10^3/cmm Creatinine 1.2 H (0.5-0.9) mg/dL BMP 10/02/19 15:25 Sodium 134 L Potassium 4.3 Chloride 101 Carbon Dioxide 21 L BUN 32 H Creatinine 1.2 H Glucose 84 Calcium 10.1 Liver Function 10/02/19 Range/Units 15:25 Total Bilirubin 0.5 (0.15-1.2) mg/dL AST 147 H (0-32) U/L ALT 39 H (0-33) U/L Alkaline Phosphatase 111 H (35-105) IU/L Albumin 3.7 (3.5-5.2) g/dL Laboratory Tests 10/02/19 18:38 Nasal/Oral COVID-19 PCR NEG CXR: Radiologist's impression: FINDINGS: Lungs: There is interstitial prominence compatible with fibrosis, bronchitis, viral pneumonitis or mild interstitial edema. Pleural space: Unremarkable. No pleural effusion. No pneumothorax. Heart/Mediastinum: The heart is enlarged. Bones/joints: There is osteopenia with diffuse degenerative changes. There is an acute fracture of the lateral aspect of the right 8th rib. Probable old left posterior rib fracture deformities are noted. There are clips in the bilateral axilla. XR/XR chest 1V portable [id number] IMPRESSION: 1. There is interstitial prominence compatible with fibrosis, bronchitis, viral pneumonitis or mild interstitial edema. 2. There is an acute fracture of the lateral aspect of the right 8th rib. No pneumothorax. CT Head: Radiologist's impression: With and without contrast IMPRESSION: No acute intracranial abnormality. No enhancing mass. A&P Assessment and plan (1) Acute encephalopathy: [place] secondary to recent adjustment and pain medications but currently still await urinalysis Status: Acute (2) Acute kidney injury: Prerenal secondary to decreased oral intake most likely Status: Acute (3) Elevated lipase: Currently of unclear significance, no symptoms suggestive of pancreatitis reported to me Status: Acute (4) Elevated liver enzymes: No recent comparative labs, unsure of acute or longstanding presently Status: Acute (5) Thrombocytopenia: No recent comparative labs, unsure of acute or longstanding presently, no signs of bleeding Status: Acute (6) Pain of metastatic malignancy: Secondary to extensive bony metastases Status: Chronic (7) Breast cancer metastasized to bone: Stage IV, see recent oncology notes for detailed plans, has been referred for palliative radiation therapy which is due to start on Friday Status: Chronic (8) Anxiety: Status: Chronic (9) Hypertension: Status: Chronic (10) GERD (gastroesophageal reflux disease): Status: Chronic Additional A&P Information Inpatient admission Stop Dilaudid which was recently added IV fluids Serial neuro exams Continue hydrocodone and low dose of morphine in the event that she awakens and has severe pain Decrease home clonazepam by half Need to see if we can come up with pain medication regimen that is not as sedating if possible Requested urinalysis be done Nothing by mouth until more awake SCDs for DVT prophylaxis, no pharmacological prophylaxis secondary to thrombocytopenia We will continue Bystolic, Protonix, Aromasin, amlodipine from home medication list I have held ibuprofen secondary to thrombocytopenia Need to see if we can get some cargo and ramp services manager evaluation for possible placement See if we can get prior labs for comparison of LFTs and platelet count PT OT and speech evaluations Supportive care otherwise CODE STATUS as per the patient's daughter is limited resuscitation with CPR and medications but no intubation If still here on Friday will need arrangements for transfer for radiation therapy Patient has plans in place for additional therapy options if approved by insurance and will need to have appropriate follow-up with Dr. Angel to address Attestations Medical Necessity Statement*: Anticipated stay greater than 2 midnights inpatient presenting with alteration in mental status after recently starting on a different narcotic agent for metastatic bone pain. She has some acute kidney injury I am assuming with makes potential for pain medicine to stick around l onger more likely. In addition her functional status of late has declined. She has laboratory abnormalities as indicated. She is going to be on some IV fluids. Other plans as indicated. Coding Level of Care Code Acute Clinical Account Liaison for [facility] Diagnoses Acute encephalopathy G93.40 Acute kidney injury N17.9 Elevated lipase R74.8 Elevated liver enzymes R74.8 Thrombocytopenia D69.6 Pain of metastatic malignancy G89.3 Breast cancer metastasized to bone C50.919; C79.51 Anxiety F41.9 Hypertension I10 GERD (gastroesophageal reflux disease) K21.9
[2019-10-02 20:00] VITALS: BP 147/67; PULSE 68; RESP 18; TEMP 36.6; O2SAT 94
[2019-10-02 20:22] LABS: SARS Covid-2 Antigen Negative (Negative)
[2019-10-02] MEDS: CLONazepam 1 mg Tablet PO (22:03)
[2019-10-02] MEDS: D5-NS 0.45% + KCL 20 mEq 20 MEQ/1,000 ML BAG 100 MEQ IV (22:39)
[2019-10-03] VITALS (9 sets, daily range): BP systolic 137–162; BP diastolic 67–80; PULSE 69–93; RESP 16–20; TEMP 36.4–37.1; O2SAT 94–98
[2019-10-03 02:24] LABS: Bilirubin Urine Neg (NEGATIVE); Blood Urine Neg (Negative); Glucose Urine UA Norm (Normal); Ketones Urine Negative (Negative); Nitrate Urine Positive (Negative); Protein Urine Neg (Negative); Specific Gravity, Urine 1.015 (1.005-1.030); Urine Appearance SL Hazy (CLEAR); Urine Color Yellow (Yellow); Urobilinogen Urine Norm (Negative); pH Urine 5 (5-7)
[2019-10-03 02:25] LABS: Add Urine Microscopic? YES; Leukocyte Esterase Urine Trace (Negative)
[2019-10-03 02:32] LABS: Add Urine Culture? Yes; Amorphous Sediment Urine 1+; Bacteria Urine 3+; RBC Urine 0-4 /hpf (0-2); Squamous Epithelial Cell Urine 0-4 (0-5); WBC Urine 15-25 /hpf (0-5)
[2019-10-03 04:39] LABS: Basophils % 0.4 %; Eosinophils # 0.2 10^3/uL (0.0-0.8); Eosinophils % 2.5 %; Hematocrit 36.6 % (37.0-47.0); Hemoglobin 11.7 g/dL (11.5-15.3); Lymphocytes # 1.4 10^3/uL (0.8-4.8); Lymphocytes % 14.6 %; Mean Corpuscular Hemoglobin 29.3 pg (28.0-34.0); Mean Corpuscular Volume 91.7 fL (81-99); Mean Platelet Volume 10.3 fL (7.4-10.4); Monocytes # 1.2 10^3/uL (0.2-0.9); Monocytes % 12.5 %; Neutrophils # 6.52 10^3/uL (1.8-7.7); Neutrophils % 69.6 %; Nucleated Red Blood Cells % 0.4 %; Platelet Count 47 10^3/cmm (130-400); Red Blood Count 3.99 10^6/uL (4.1-5.3); Red Cell Distribution Width 17.2 % (12.1-15.1); White Blood Count 9.4 10^3/uL (4.0-10.0)
[2019-10-03 04:58] LABS: Lipase 90 U/L (13-60)
[2019-10-03 04:59] LABS: Alanine Aminotransferase 42 U/L (0-33); Alkaline Phosphatase 110 IU/L (35-105); Anion Gap 14.7 (5-19); Aspartate Amino Transferase 152 U/L (0-32); Blood Urea Nitrogen 21 mg/dL (8-23); Calcium 9.4 mg/dL (8.5-10.5); Carbon Dioxide 22 mmol/L (22-29); Chloride 102 mmol/L (98-107); Creatinine Clr Calc Pharmacy 52.0058; Globulin 3.7 g/dL (1.3-4.6); Glucose 112 mg/dL (65-115); Osmolality Calculated 277 mOsm/kg (285-295); Potassium 3.7 mmol/L (3.5-5.1); Sodium 135 mmol/L (136-145); Total Bilirubin 0.7 mg/dL (0.15-1.2); Total Protein 7.7 g/dL (6.6-8.7)
[2019-10-03] MEDS: docusate sodium 100 mg Capsule PO ×2 (08:48→17:57)
[2019-10-03] MEDS: amlodipine 10 mg Tablet PO (08:48)
[2019-10-03] MEDS: cefTRIAXone 1,000 MG in sodium chloride 0.9% (plus) 50 ML 100 MG IV (08:48)
[2019-10-03] MEDS: D5-NS 0.45% + KCL 20 mEq 20 MEQ/1,000 ML BAG 100 MEQ IV ×2 (08:48→14:26)
[2019-10-03] MEDS: pantoprazole DR 40 mg Tablet PO (08:49)
--- NOTE | 2019-10-03 10:12 | PC.NURSE ---
Patient states, I am scared of you. When asked why patient states, I don't know where I am. reoriented to place time and reason for stay, verbalized understanding, spoke to daughter, Shira on the phone about incidence and transferred call into room for Shira to speak to patient. Patient is calm now. Bed alarm activated.
--- NOTE | 2019-10-03 12:46 | PC.OT ---
Attempted to see patient for evaluation. Spoke with nursing. Patient is not following directions at this time and is not appropriate for evaluation at this time. Will attempt again tomorrow.
[2019-10-03] MEDS: HYDROcodone-acetaminophen 5-325 mg Tablet 1 TAB PO (13:07)
--- NOTE | 2019-10-03 16:11 | PC.PT ---
PT evaluation on hold, awaiting:covid Testing results in addition to patient unable to follow any simple directions, per nursing staff at this time; will follow; further appears patient pursuing palliative care.
--- NOTE | 2019-10-03 18:14 | PC.NURSE ---
Dr. Singh notified of ST recommendation of advancing diet from NPO to mechanical soft diet with regular liquids, okay'd order per recommendation, see orders for further details.
[2019-10-03] MEDS: CLONazepam 1 mg Tablet 0.5 MG PO (21:17)
--- NOTE | 2019-10-03 21:25 | P.PN_ITS ---
Subjective Subjective: Interval history: She is awake and alert, denies any complaints, but is perhaps slightly confused. She tells me that she has had 2 different breast cancers, and follows with cancer doctor. After initial discussion she asked me if I would be able to take her home. Asking her who she lives with at home, says that she lives with her mother. Does not seem to remember that she lives with her . She does not recall the name of her oncologist. She does not appear to remember that her cancer is metastatic. She does not offer any specific complaints when asked during my visit. I tried to reach her by phone, but was unsuccessful after several tries. I was able to speak with her daughter Shira who tells me the corroborating information that she lives with her and not her mother. She was able to speak with her on the phone earlier and reassured her. She states that she has a history of episode of prolonged delirium in the past, which appears may have been related to pain medication and benzodiazepine. She states that her mother was in somewhat confused state, with some sundowning symptoms for several weeks, and improved only about 6 weeks ago after her pain medication and clasping doses were tapered down. She states that no other specific causes could be found responsible for her symptoms. She thought that her mother was progressing into Alzheimer's dementia as did her grandmother. She had sundowning symptoms at the time. She does state that her confusion and sundowning symptoms did resolve, although it took a long time. Vitals/I&O/Wt Last Vital Signs Temp 98.8 F 10/03/19 20:00 Pulse 70 10/03/19 20:00 Resp 20 H 10/03/19 20:00 BP 153/80 10/03/19 20:00 Pulse Ox 97 10/03/19 20:00 10/03/19 10/03/19 10/03/19 06:59 14:59 22:59 Intake Total 625 / 625 818.333 / 818.333 Output Total 1000 / 1450 1000 / 1000 Balance -375 / -825 -181.667 / -181.667 Weight last 48 hrs Weight 63.503 kg Physical Exam Const: COMMON NORMALS: no acute distress ORIENTATION/CONSCIOUSNESS: Yes confused HENMT: COMMON NORMALS: oropharynx normal Eye: OTHER: She has a multicolored iris on the right side. She is rather proud of it. Neck/C-Spine: COMMON NORMALS: no JVD Resp: COMMON NORMALS: normal respiratory effort and clear to auscultation bilaterally AUSCULTATION: clear to auscultation bilaterally Cardio: COMMON NORMALS: no JVD, regular rhythm, S1 normal heart sound present, S2 normal heart sound present and No murmurs present (Cardio) RHYTHM: regular rhythm HEART SOUNDS: S1 normal heart sound present and S2 normal heart sound present GI: COMMON NORMALS: Normal to inspection, nondistended, normoactive bowel sounds present, Soft to palpation and non-tender PALPATION: Yes Soft to palpation Extremity: COMMON NORMALS: no joint enlargement and no pedal edema Neuro: COMMON NORMALS: moves all extremities Skin: COMMON NORMALS: no rashes or lesions noted GENERAL SKIN EXAM: no rashes or lesions noted Data : 10/03/19 04:19 10/03/19 04:19 A&P Assessment and plan (1) Acute encephalopathy: Acute encephalopathy secondary to urinary tract infection, as well as due to medication. Resulting in delirium. Discussed with patient, although she appears to be somewhat confused currently. Discussed also with her daughter. Was unable to reach her . It appears this may be multifactorial. Appears she has a urinary tract infection. Also concern for poor response to advancement of pain medicine to hydromorphone. Daughter reports she has had a previous episode of prolonged delirium in the past, which appears may have been related to pain medication and benzodiazepine. She states that her mother was in somewhat confused state, with some sundowning symptoms for several weeks, and improved only about 6 weeks ago after her pain medication and clasping doses were tapered down. She states that no other specific causes could be found responsible for her symptoms. She thought that her mother was progressing into Alzheimer's dementia as did her grandmother. She had sundowning symptoms at the time. She does state that her confusion and sundowning symptoms did resolve, although it took a long time. It is somewhat difficult to say whether she has some degree of underlying cognitive dysfunction which may make her significantly more sensitive to developing delirium which appears may be rather prolonged based on her prior episode. At this time hydromorphone is discontinued. Clonazepam for now is continued at the lower dose as previously to avoid withdrawal symptoms. Discussed with her daughter cautious pain control given she appears to be very sensitive to pain medications. Treat urinary tract infection. No metastatic disease noted on CT of the head. Daughter asked about additional evaluation for possible underlying Alzheimer's disease. Discussed with her this could be evaluated more closely in the outpatient office with neurology once she is closer to baseline with improvement of acute conditions. Status: Acute (2) UTI (urinary tract infection): Continue Rocephin. Follow-up urine culture. Status: Acute (3) Acute kidney injury: Resolved. Avoid NSAIDs. Status: Acute (4) Elevated lipase: Is not tender on abdominal exam. Currently of unclear significance, no symptoms suggestive of pancreatitis Status: Acute (5) Elevated liver enzymes: No right upper quadrant tenderness on deep palpation. We will follow-up with hepatobiliary ultrasound. Status: Acute (6) Thrombocytopenia: This appears to be stable. Baseline is unknown. Prior labs only from 2014. Does have some altered mental status. On presentation had acute kidney injury, but this resolved. Will request for peripheral smear. Monitor platelet levels. Status: Acute (7) Pain of metastatic malignancy: Secondary to extensive bony metastases. Discussed with her daughter the difficulty of managing pain, with treatments leading to alteration in mental status, risk of respiratory depression. Continue supportive measures as possible. Acetaminophen. She was not in pain during my visit. If we can identify particular focus, perhaps can add lidocaine patch. Continue hydrocodone to avoid withdrawal. Dilaudid is discontinued. Morphine IV for severe pain. We will add continuous pulse oximetry. Plans for palliative radiation therapy for which she has appointment set for Friday. Status: Chronic (8) Breast cancer metastasized to bone: Stage IV, see recent oncology notes for detailed plans, has been referred for palliative radiation therapy which is due to start on Friday the Status: Chronic (9) Anxiety: Status: Chronic (10) Hypertension: Continue amlodipine, nebivolol Status: Chronic (11) GERD (gastroesophageal reflux disease): Continue PPI Status: Chronic Attestations Medical Necessity Statement*: Continue admission for assessment management of acute encephalopathy in the setting of severe pain secondary to metastatic cancer, additional problems as detailed above. Coding Level of Care Code Acute Timber Surveyor for [facility] Diagnoses Acute encephalopathy G93.40 UTI (urinary tract infection) N39.0 Acute kidney injury N17.9 Elevated lipase R74.8 Elevated liver enzymes R74.8 Thrombocytopenia D69.6 Pain of metastatic malignancy G89.3 Breast cancer metastasized to bone C50.919; C79.51 Anxiety F41.9 Hypertension I10 GERD (gastroesophageal reflux disease) K21.9
[2019-10-04] VITALS (9 sets, daily range): BP systolic 127–165; BP diastolic 52–74; PULSE 68–79; RESP 16–20; TEMP 36.4–37.1; O2SAT 91–94
[2019-10-04] MEDS: HYDROcodone-acetaminophen 5-325 mg Tablet 1 TAB PO ×2 (00:56→18:50)
[2019-10-04] MEDS: D5-NS 0.45% + KCL 20 mEq 20 MEQ/1,000 ML BAG 100 MEQ IV ×2 (00:57→12:49)
[2019-10-04] MEDS: ondansetron 2 mg/ML SDV 2 mL 4 MG IVP (01:29)
[2019-10-04 03:15] LABS: Basophils % 0.4 %; Eosinophils # 0.2 10^3/uL (0.0-0.8); Eosinophils % 1.8 %; Hematocrit 32.2 % (37.0-47.0); Hemoglobin 10.5 g/dL (11.5-15.3); Lymphocytes % 10.9 %; Mean Corpuscular HGB Conc 32.6 g/dL (30.0-36.0); Mean Corpuscular Hemoglobin 30.3 pg (28.0-34.0); Mean Corpuscular Volume 92.8 fL (81-99); Mean Platelet Volume 11.2 fL (7.4-10.4); Monocytes # 1.2 10^3/uL (0.2-0.9); Monocytes % 12.7 %; Neutrophils # 6.96 10^3/uL (1.8-7.7); Neutrophils % 73.6 %; Nucleated Red Blood Cells % 0.2 %; Platelet Count 50 10^3/cmm (130-400); Red Blood Count 3.47 10^6/uL (4.1-5.3); Red Cell Distribution Width 17.5 % (12.1-15.1); White Blood Count 9.5 10^3/uL (4.0-10.0)
[2019-10-04 03:29] LABS: Alanine Aminotransferase 38 U/L (0-33); Albumin Level 3.6 g/dL (3.5-5.2); Alkaline Phosphatase 107 IU/L (35-105); Anion Gap 13.7 (5-19); Aspartate Amino Transferase 153 U/L (0-32); Blood Urea Nitrogen 15 mg/dL (8-23); Calcium 9.8 mg/dL (8.5-10.5); Carbon Dioxide 23 mmol/L (22-29); Chloride 101 mmol/L (98-107); Creatinine Clr Calc Pharmacy 52.0058; Globulin 3.4 g/dL (1.3-4.6); Glucose 119 mg/dL (65-115); Osmolality Calculated 275 mOsm/kg (285-295); Potassium 3.7 mmol/L (3.5-5.1); Sodium 134 mmol/L (136-145); Total Bilirubin 0.6 mg/dL (0.15-1.2)
[2019-10-04] MEDS: cefTRIAXone 1,000 MG in sodium chloride 0.9% (plus) 50 ML 100 MG IV (07:45)
[2019-10-04] MEDS: pantoprazole DR 40 mg Tablet PO (07:47)
[2019-10-04] MEDS: amlodipine 10 mg Tablet PO (07:47)
[2019-10-04] MEDS: docusate sodium 100 mg Capsule PO ×2 (07:47→18:50)
[2019-10-04 11:46] LABS: Coronavirus Lab Test PTC Negative
--- NOTE | 2019-10-04 14:14 | PM.PN ---
Subjective Subjective: Interval history: She appears to be less confused today. When asekd about pain or discomfort says perhaps only in her back. Vitals/I&O/Wt Last Vital Signs Temp 98.2 F 10/04/19 12:00 Pulse 76 10/04/19 12:00 Resp 18 10/04/19 12:00 BP 153/74 10/04/19 12:00 Pulse Ox 92 10/04/19 12:00 10/03/19 10/04/19 10/04/19 22:59 06:59 14:59 Intake Total 1000 / 3262.368 4368 / 1320 Output Total 400 / 1400 200 / 1600 Balance -400 / -531.667 800 / 705.541 0166 / 1320 Physical Exam Const: COMMON NORMALS: no acute distress and alert ORIENTATION/CONSCIOUSNESS: Yes oriented to person, Yes oriented to place and Yes confused (But much more appropriate today. Oriented to being in the hospital, and [place]. Does get the date wrong.) HENMT: COMMON NORMALS: oropharynx normal Eye: OTHER: Multicolored iris on the right side. Neck/C-Spine: COMMON NORMALS: no meningeal signs and no JVD Resp: COMMON NORMALS: normal respiratory effort and clear to auscultation bilaterally AUSCULTATION: clear to auscultation bilaterally Cardio: COMMON NORMALS: no JVD, regular rhythm, S1 normal heart sound present, S2 normal heart sound present and No murmurs present (Cardio) RHYTHM: regular rhythm HEART SOUNDS: S1 normal heart sound present and S2 normal heart sound present GI: COMMON NORMALS: Normal to inspection, nondistended, normoactive bowel sounds present, Soft to palpation and non-tender PALPATION: Yes Soft to palpation Extremity: COMMON NORMALS: no joint enlargement and no pedal edema Neuro: COMMON NORMALS: moves all extremities SENSORIUM/ORIENTATION: Yes alert, Yes oriented to person and Yes oriented to place MENINGEAL SIGNS: Yes no meningeal signs SPEECH: speech normal MOTOR EXAM: Normal motor muscle tone present throughout Skin: COMMON NORMALS: no rashes or lesions noted GENERAL SKIN EXAM: no rashes or lesions noted Data : 10/04/19 02:35 10/04/19 02:35 Micro: Microbiology 10/02/19 01:40 Urine Culture - Preliminary Urine,Clean Catch Gram Negative Rods A&P Assessment and plan (1) Acute encephalopathy: This appears to be improving. Today she is more appropriate. She is oriented to being in the hospital in [place]. Does get the date wrong. At this time continue treatment of urinary tract infection. Optimization of pain control of metastatic cancer. Today she does complain of some back pain. Added lidocaine patch. Continue monitoring possible pneumonitis, although her breathing and saturation so far have been without reproach. COVID-19 testing negative. Family visiting her today. I attempted to discuss her condition with her , although he is very hard of hearing, and was having some difficulty during the discussion. Subsequently discussed also with her daughter. Discussed her condition with her oncologist. He will be expecting her in clinic. He is considering what additional options for palliative chemotherapy may be added. If her mental status continues to improve, should be able to proceed with her initial visit for setting up radiotherapy tomorrow. Acute encephalopathy secondary to urinary tract infection, as well as due to medication resulting in delirium. It appears multifactorial. Appears she has a urinary tract infection. Also concern for poor response to advancement of pain medicine to hydromorphone. Daughter reports she has had a previous episode of prolonged delirium in the past, which appears may have been related to pain medication and benzodiazepine. She states that her mother was in somewhat confused state, with some sundowning symptoms for several weeks, and improved only about 6 weeks ago after her pain medication and clasping doses were tapered down. She states that no other specific causes could be found responsible for her symptoms. She thought that her mother was progressing into Alzheimer's dementia as did her grandmother. She had sundowning symptoms at the time. She does state that her confusion and sundowning symptoms did resolve, although it took a long time. It is somewhat difficult to say whether she has some degree of underlying cognitive dysfunction which may make her significantly more sensitive to developing delirium which appears may be rather prolonged based on her prior episode. At this time hydromorphone is discontinued. Clonazepam for now is continued at the lower dose as previously to avoid withdrawal symptoms. Discussed with her daughter cautious pain control given she appears to be very sensitive to pain medications. Treat urinary tract infection. No metastatic disease noted on CT of the head. Daughter asked about additional evaluation for possible underlying Alzheimer's disease. Discussed with her this could be evaluated more closely in the outpatient office with neurology once she is closer to baseline with improvement of acute conditions. Possible pneumonitis noted on chest x-ray. Status: Acute (2) UTI (urinary tract infection): Complicated urinary tract infection contributing to acute encephalopathy. Continue Rocephin. Follow-up urine culture. Status: Acute (3) Acute kidney injury: Resolved. Avoid NSAIDs. Status: Acute (4) Elevated lipase: Is not tender on abdominal exam. Currently of unclear significance, no symptoms suggestive of pancreatitis Status: Acute (5) Elevated liver enzymes: No right upper quadrant tenderness on deep palpation. Hepatobiliary ultrasound is showing hypoechoic mass in the left posterior lobe of liver 2.1 x 1.4 cm suspicious for metastatic disease. Cholelithiasis. Normal bile ducts. Status: Acute (6) Thrombocytopenia: This appears to be stable. Baseline is unknown. Prior labs only from 2014. Peripheral smear obtained, without any finding of schistocytes, abnormal platelets or blasts. Monitor platelet levels. Requested for records from Dr. Luo's office with regards to recent platelet levels. Status: Acute (7) Pain of metastatic malignancy: Today she expresses pain in her back as the only thing bothering her. Added lidocaine patch. Continue hydrocodone. Avoid Dilaudid. Plans are to initiate radiation therapy for palliation of her severe pain due to metastatic disease to the spine. Appointment is set for Friday. If mental status continues to improve, perhaps should be able to proceed with the appointment. Better pain control may help her with improvement in mental status as well. Secondary to extensive bony metastases. Discussed with her daughter the difficulty of managing pain, with treatments leading to alteration in mental status, risk of respiratory depression. Continue hydrocodone to avoid withdrawal. Dilaudid is discontinued. Morphine IV for severe pain. Status: Chronic (8) Breast cancer metastasized to bone: Stage IV, see recent oncology notes for detailed plans, has been referred for palliative radiation therapy which is due to start on Friday Continue follow-up with oncology in office regarding additional options for palliative chemotherapy. Status: Chronic (9) Anxiety: Status: Chronic (10) Hypertension: Continue amlodipine, nebivolol Status: Chronic (11) GERD (gastroesophageal reflux disease): Continue PPI Status: Chronic Attestations Medical Necessity Statement*: Continue admission for assessment management of acute encephalopathy due to multifactorial causes, optimization of pain control regimen in severe cancer pain, as well as sensitivity to pain medications, disposition planning. Coding Level of Care Code Acute Associate Media Director for Chg Fwd Exam Comprehensive Diagnoses Acute encephalopathy G93.40 UTI (urinary tract infection) N39.0 Acute kidney injury N17.9 Elevated lipase R74.8 Elevated liver enzymes R74.8 Thrombocytopenia D69.6 Pain of metastatic malignancy G89.3 Breast cancer metastasized to bone C50.919; C79.51 Anxiety F41.9 Hypertension I10 GERD (gastroesophageal reflux disease) K21.9
[2019-10-04 15:24] LABS: LAB Peripheral Smear Sent for Review
[2019-10-04] MEDS: CLONazepam 1 mg Tablet 0.5 MG PO (20:34)
--- NOTE | 2019-10-04 21:40 | US_ITS ---
WS: [id number] RIGHT UPPER QUADRANT ULTRASOUND HISTORY: Transaminase abnormality COMPARISON: None available. Liver: 12.4 cm in length. Normal size liver. Ill-defined hypoechoic mass in the posterior LEFT lobe o f liver measures 2.1 x 1.4 cm. Gallbladder: Normally distended gallbladder. There are stones layering in the gallbladder. No wall th ickening. CBD: 0.5 cm Pancreas: Normal size and echogenicity. Right kidney: 9.0 cm in length. Normal echogenicity with no mass or hydronephrosis. Aorta and IVC: Unremarkable. No ascites. US/US gall bladder 61116 IMPRESSION: 1. Hypoechoic mass in the posterior LEFT lobe of liver measures 2.1 x 1.4 cm. Suspicious for metastatic disease. Please see PET/CT report from 09/25/2019. 2. Cholelithiasis. 3. Normal common bile duct.
[2019-10-05] VITALS (9 sets, daily range): BP systolic 122–176; BP diastolic 60–78; PULSE 64–84; RESP 16–24; TEMP 36.4–37; O2SAT 93–95
[2019-10-05 05:03] LABS: Basophils # 0.1 10^3/uL (0.0-0.1); Basophils % 0.7 %; Eosinophils # 0.2 10^3/uL (0.0-0.8); Eosinophils % 2.8 %; Hematocrit 32.7 % (37.0-47.0); Hemoglobin 10.1 g/dL (11.5-15.3); Lymphocytes # 1.3 10^3/uL (0.8-4.8); Mean Corpuscular HGB Conc 30.9 g/dL (30.0-36.0); Mean Platelet Volume 10.5 fL (7.4-10.4); Monocytes # 1.1 10^3/uL (0.2-0.9); Monocytes % 14.3 %; Neutrophils # 4.89 10^3/uL (1.8-7.7); Neutrophils % 64.5 %; Nucleated Red Blood Cells % 0.4 %; Platelet Count 40 10^3/cmm (130-400); Red Blood Count 3.48 10^6/uL (4.1-5.3); Red Cell Distribution Width 17.7 % (12.1-15.1); White Blood Count 7.6 10^3/uL (4.0-10.0)
[2019-10-05 05:21] LABS: Alanine Aminotransferase 39 U/L (0-33); Albumin Level 3.3 g/dL (3.5-5.2); Alkaline Phosphatase 100 IU/L (35-105); Anion Gap 11.8 (5-19); Aspartate Amino Transferase 163 U/L (0-32); Blood Urea Nitrogen 13 mg/dL (8-23); Calcium 9.3 mg/dL (8.5-10.5); Carbon Dioxide 23 mmol/L (22-29); Chloride 105 mmol/L (98-107); Creatinine Clr Calc Pharmacy 52.0058; Globulin 3.6 g/dL (1.3-4.6); Glucose 83 mg/dL (65-115); Osmolality Calculated 277 mOsm/kg (285-295); Potassium 3.8 mmol/L (3.5-5.1); Sodium 136 mmol/L (136-145); Total Bilirubin 0.5 mg/dL (0.15-1.2); Total Protein 6.9 g/dL (6.6-8.7)
--- NOTE | 2019-10-05 08:20 | PC.SOCIAL ---
IMM Page 2 of [facility] provided to patient, however she not able to comprehend at this time. Will also discuss with family by phone.
[2019-10-05] MEDS: cefTRIAXone 1,000 MG in sodium chloride 0.9% (plus) 50 ML 100 MG IV (08:58)
[2019-10-05] MEDS: amlodipine 10 mg Tablet PO (09:00)
[2019-10-05] MEDS: lidocaine 5% Patch 1 PATCH TOPICAL ×2 (09:01→22:19)
[2019-10-05] MEDS: pantoprazole DR 40 mg Tablet PO (09:02)
[2019-10-05] MEDS: docusate sodium 100 mg Capsule PO (09:04)
--- NOTE | 2019-10-05 12:06 | PC.SOCIAL ---
IM follow up letter discussed with daughter Shira. She verbalized understanding of the right to appeal and number was provided to her by phone. Daughter read number back to verify. NO further questions. Refer to CM notes for discharge planning information.
--- NOTE | 2019-10-05 12:09 | PM.PN ---
Subjective Subjective: Interval history: Patient is alert and oriented to self and place. She was able to recall name of president. She denies shortness of breath or chest pain. Denies abdominal pain. Denies problem with bowel movement or dysuria. Patient appears to have metastatic breast cancer and currently taking oral chemotherapy with plan to have palliative radiation therapy especially to her back. She is growing gram-negative anais in urine and identification and susceptibility currently pending. Clinically patient appears to be responding well to ceftriaxone. Vitals/I&O/Wt Last Vital Signs Temp 97.6 F 10/05/19 11:33 Pulse 75 10/05/19 11:39 Resp 18 10/05/19 11:39 BP 128/64 10/05/19 11:33 Pulse Ox 94 10/05/19 11:39 10/04/19 10/05/19 10/05/19 22:59 06:59 14:59 Intake Total 1001.667 / 2371.667 240 / 240 Output Total 350 / 350 600 / 600 Balance 1001.667 / 2371.667 -350 / 2021.667 -360 / -360 Physical Exam Const: COMMON NORMALS: no acute distress and patient oriented x3 Resp: COMMON NORMALS: normal respiratory effort and clear to auscultation bilaterally AUSCULTATION: clear to auscultation bilaterally Cardio: COMMON NORMALS: regular rate, regular rhythm and S2 normal heart sound present RATE: regular rate RHYTHM: regular rhythm HEART SOUNDS: S2 normal heart sound present OTHER: No lower extremity edema GI: COMMON NORMALS: Normal to inspection, nondistended, normoactive bowel sounds present, Soft to palpation and non-tender PALPATION: Yes Soft to palpation Neuro: COMMON NORMALS: patient oriented x3 and no focal motor deficits (But generally appears weak) Data : 10/05/19 04:45 10/05/19 04:45 Micro: Microbiology 10/02/19 01:40 Urine Culture - Preliminary Urine,Clean Catch Gram Negative Rods A&P Assessment and plan (1) Acute encephalopathy: This appears to be improving. Today she is more appropriate. She is oriented to being in the hospital in [place]. Does get the date wrong. At this time continue treatment of urinary tract infection. Optimization of pain control of metastatic cancer. Today she does complain of some back pain. Added lidocaine patch. Continue monitoring possible pneumonitis, although her breathing and saturation so far have been without reproach. COVID-19 testing negative. Family visiting her today. I attempted to discuss her condition with her , although he is very hard of hearing, and was having some difficulty during the discussion. Subsequently discussed also with her daughter. Discussed her condition with her oncologist. He will be expecting her in clinic. He is considering what additional options for palliative chemotherapy may be added. If her mental status continues to improve, should be able to proceed with her initial visit for setting up radiotherapy tomorrow. Acute encephalopathy secondary to urinary tract infection, as well as due to medication resulting in delirium. It appears multifactorial. Appears she has a urinary tract infection. Also concern for poor response to advancement of pain medicine to hydromorphone. Daughter reports she has had a previous episode of prolonged delirium in the past, which appears may have been related to pain medication and benzodiazepine. She states that her mother was in somewhat confused state, with some sundowning symptoms for several weeks, and improved only about 6 weeks ago after her pain medication and clasping doses were tapered down. She states that no other specific causes could be found responsible for her symptoms. She thought that her mother was progressing into Alzheimer's dementia as did her grandmother. She had sundowning symptoms at the time. She does state that her confusion and sundowning symptoms did resolve, although it took a long time. It is somewhat difficult to say whether she has some degree of underlying cognitive dysfunction which may make her significantly more sensitive to developing delirium which appears may be rather prolonged based on her prior episode. At this time hydromorphone is discontinued. Clonazepam for now is continued at the lower dose as previously to avoid withdrawal symptoms. Discussed with her daughter cautious pain control given she appears to be very sensitive to pain medications. Treat urinary tract infection. No metastatic disease noted on CT of the head. Daughter asked about additional evaluation for possible underlying Alzheimer's disease. Discussed with her this could be evaluated more closely in the outpatient office with neurology once she is closer to baseline with improvement of acute conditions. Possible pneumonitis noted on chest x-ray. Status: Acute (2) UTI (urinary tract infection): Complicated urinary tract infection contributing to acute encephalopathy. Continue Rocephin. Follow-up urine culture. Status: Acute (3) Acute kidney injury: Resolved. Avoid NSAIDs. Status: Acute (4) Elevated lipase: Is not tender on abdominal exam. Currently of unclear significance, no symptoms suggestive of pancreatitis Status: Acute (5) Elevated liver enzymes: No right upper quadrant tenderness on deep palpation. Hepatobiliary ultrasound is showing hypoechoic mass in the left posterior lobe of liver 2.1 x 1.4 cm suspicious for metastatic disease. Cholelithiasis. Normal bile ducts. Status: Acute (6) Thrombocytopenia: This appears to be stable. Baseline is unknown. Prior labs only from 2014. Peripheral smear obtained, without any finding of schistocytes, abnormal platelets or blasts. Monitor platelet levels. Requested for records from Dr. Luo's office with regards to recent platelet levels. Status: Acute (7) Pain of metastatic malignancy: Today she expresses pain in her back as the only thing bothering her. Added lidocaine patch. Continue hydrocodone. Avoid Dilaudid. Plans are to initiate radiation therapy for palliation of her severe pain due to metastatic disease to the spine. Appointment is set for Friday. If mental status continues to improve, perhaps should be able to proceed with the appointment. Better pain control may help her with improvement in mental status as well. Secondary to extensive bony metastases. Discussed with her daughter the difficulty of managing pain, with treatments leading to alteration in mental status, risk of respiratory depression. Continue hydrocodone to avoid withdrawal. Dilaudid is discontinued. Morphine IV for severe pain. Status: Chronic (8) Breast cancer metastasized to bone: Stage IV, see recent oncology notes for detailed plans, has been referred for palliative radiation therapy which is due to start on Friday the Continue follow-up with oncology in office regarding additional options for palliative chemotherapy. Status: Chronic (9) Anxiety: Status: Chronic (10) Hypertension: Continue amlodipine, nebivolol Status: Chronic (11) GERD (gastroesophageal reflux disease): Continue PPI Status: Chronic Additional A&P Information Inpatient admission Stop Dilaudid which was recently added IV fluids Serial neuro exams Continue hydrocodone and low dose of morphine in the event that she awakens and has severe pain Decrease home clonazepam by half Need to see if we can come up with pain medication regimen that is not as sedating if possible Requested urinalysis be done Nothing by mouth until more awake SCDs for DVT prophylaxis, no pharmacological prophylaxis secondary to thrombocytopenia We will continue Bystolic, Protonix, Aromasin, amlodipine from home medication list I have held ibuprofen secondary to thrombocytopenia Need to see if we can get some financial services manager evaluation for possible placement See if we can get prior labs for comparison of LFTs and platelet count PT OT and speech evaluations Supportive care otherwise CODE STATUS as per the patient's daughter is limited resuscitation with CPR and medications but no intubation If still here on Friday will need arrangements for transfer for radiation therapy Patient has plans in place for additional therapy options if approved by insurance and will need to have appropriate follow-up with Dr. Angel to address PLAN: Continue current monitoring and treatment. Awaiting placement to nursing facility as was planned by patient's family. I think hospice would be very appropriate for patient. Awaiting urine identification and susceptibility. Continue with therapy as much as patient can tolerate. Attestations Medical Necessity Statement*: Patient with UTI and significant deconditioning/generalized weakness requires close inpatient monitoring and treatment until appropriate discharge arrangements are made. Time Spent in Patient Care: 16 - 35 minutes Coding Level of Care Code Acute Ironworker Machine Operator for g Fwd Diagnoses Acute encephalopathy G93.40 UTI (urinary tract infection) N39.0 Acute kidney injury N17.9 Elevated lipase R74.8 Elevated liver enzymes R74.8 Thrombocytopenia D69.6 Pain of metastatic malignancy G89.3 Breast cancer metastasized to bone C50.919; C79.51 Anxiety F41.9 Hypertension I10 GERD (gastroesophageal reflux disease) K21.9
[2019-10-05] MEDS: D5-NS 0.45% + KCL 20 mEq 20 MEQ/1,000 ML BAG 100 MEQ IV (18:53)
[2019-10-05] MEDS: CLONazepam 1 mg Tablet 0.5 MG PO (22:18)
[2019-10-06] VITALS (7 sets, daily range): BP systolic 122–174; BP diastolic 58–86; PULSE 76–86; RESP 18–24; TEMP 36.2–37.2; O2SAT 92–96
--- NOTE | 2019-10-06 | CT_ITS ---
Radiation Therapy Planning CT images; total exam DLP: 593.37 mGy-cm MTDD
[2019-10-06 04:57] LABS: Basophils % 0.4 %; Eosinophils # 0.2 10^3/uL (0.0-0.8); Hematocrit 34.1 % (37.0-47.0); Hemoglobin 10.8 g/dL (11.5-15.3); Lymphocytes # 1.6 10^3/uL (0.8-4.8); Lymphocytes % 17.6 %; Mean Corpuscular HGB Conc 31.7 g/dL (30.0-36.0); Mean Corpuscular Volume 91.4 fL (81-99); Mean Platelet Volume 9.4 fL (7.4-10.4); Monocytes # 1.4 10^3/uL (0.2-0.9); Monocytes % 14.9 %; Neutrophils # 5.96 10^3/uL (1.8-7.7); Neutrophils % 64.3 %; Nucleated Red Blood Cells % 0.3 %; Platelet Count 41 10^3/cmm (130-400); Red Blood Count 3.73 10^6/uL (4.1-5.3); Red Cell Distribution Width 17.5 % (12.1-15.1); White Blood Count 9.3 10^3/uL (4.0-10.0)
[2019-10-06] MEDS: D5-NS 0.45% + KCL 20 mEq 20 MEQ/1,000 ML BAG 100 MEQ IV (05:09)
[2019-10-06 05:19] LABS: Alanine Aminotransferase 45 U/L (0-33); Albumin Level 3.7 g/dL (3.5-5.2); Alkaline Phosphatase 111 IU/L (35-105); Anion Gap 12.6 (5-19); Aspartate Amino Transferase 158 U/L (0-32); Blood Urea Nitrogen 9 mg/dL (8-23); Calcium 9.1 mg/dL (8.5-10.5); Carbon Dioxide 26 mmol/L (22-29); Chloride 103 mmol/L (98-107); Creatinine Clr Calc Pharmacy 52.0058; Globulin 3.8 g/dL (1.3-4.6); Glucose 115 mg/dL (65-115); Osmolality Calculated 283 mOsm/kg (285-295); Potassium 3.6 mmol/L (3.5-5.1); Sodium 138 mmol/L (136-145); Total Bilirubin 0.5 mg/dL (0.15-1.2); Total Protein 7.5 g/dL (6.6-8.7)
[2019-10-06] MEDS: cefTRIAXone 1,000 MG in sodium chloride 0.9% (plus) 50 ML 100 MG IV (08:28)
[2019-10-06] MEDS: amlodipine 10 mg Tablet PO (09:35)
[2019-10-06] MEDS: pantoprazole DR 40 mg Tablet PO (09:35)
[2019-10-06] MEDS: lidocaine 5% Patch 1 PATCH TOPICAL ×2 (09:36→22:02)
[2019-10-06] MEDS: docusate sodium 100 mg Capsule PO ×2 (09:36→17:35)
--- NOTE | 2019-10-06 10:51 | PC.NURSE ---
Moira rounding Per Dr. Cerna, we are currently awaiting family to decide on hospice. SS are currently working with family to help determine this. No nursing needs noted at this time.
--- NOTE | 2019-10-06 12:19 | PM.PN ---
Subjective Subjective: Interval history: Patient reports having chronic back pain but otherwise denies any complaints including shortness of breath or chest pain. Denies abdominal pain. Reports poor appetite. Vitals are stable. Platelets appear to plateau. Vitals/I&O/Wt Last Vital Signs Temp 98.0 F 10/06/19 11:12 Pulse 80 10/06/19 11:12 Resp 18 10/06/19 11:12 BP 126/64 10/06/19 11:12 Pulse Ox 94 10/06/19 11:12 10/05/19 10/06/19 10/06/19 22:59 06:59 14:59 Intake Total 240 / 770 1000 / 1770 170 / 170 Output Total 550 / 1150 350 / 1500 750 / 750 Balance -310 / -380 650 / 270 -580 / -580 Physical Exam Const: COMMON NORMALS: no acute distress and patient oriented x3 Resp: COMMON NORMALS: normal respiratory effort and clear to auscultation bilaterally AUSCULTATION: clear to auscultation bilaterally Cardio: COMMON NORMALS: regular rate, regular rhythm and S2 normal heart sound present RATE: regular rate RHYTHM: regular rhythm HEART SOUNDS: S2 normal heart sound present OTHER: No lower extremity edema GI: COMMON NORMALS: Normal to inspection, nondistended, normoactive bowel sounds present, Soft to palpation and non-tender PALPATION: Yes Soft to palpation Neuro: COMMON NORMALS: patient oriented x3 and no focal motor deficits (But generally appears weak) Data : 10/06/19 04:09 10/06/19 04:09 Micro: Microbiology 10/02/19 01:40 Urine Culture - Final Urine,Clean Catch Escherichia coli A&P Assessment and plan (1) Acute encephalopathy: This appears to be improving. Today she is more appropriate. She is oriented to being in the hospital in [place]. Does get the date wrong. At this time continue treatment of urinary tract infection. Optimization of pain control of metastatic cancer. Today she does complain of some back pain. Added lidocaine patch. Continue monitoring possible pneumonitis, although her breathing and saturation so far have been without reproach. COVID-19 testing negative. Family visiting her today. I attempted to discuss her condition with her , although he is very hard of hearing, and was having some difficulty during the discussion. Subsequently discussed also with her daughter. Discussed her condition with her oncologist. He will be expecting her in clinic. He is considering what additional options for palliative chemotherapy may be added. If her mental status continues to improve, should be able to proceed with her initial visit for setting up radiotherapy tomorrow. Acute encephalopathy secondary to urinary tract infection, as well as due to medication resulting in delirium. It appears multifactorial. Appears she has a urinary tract infection. Also concern for poor response to advancement of pain medicine to hydromorphone. Daughter reports she has had a previous episode of prolonged delirium in the past, which appears may have been related to pain medication and benzodiazepine. She states that her mother was in somewhat confused state, with some sundowning symptoms for several weeks, and improved only about 6 weeks ago after her pain medication and clasping doses were tapered down. She states that no other specific causes could be found responsible for her symptoms. She thought that her mother was progressing into Alzheimer's dementia as did her grandmother. She had sundowning symptoms at the time. She does state that her confusion and sundowning symptoms did resolve, although it took a long time. It is somewhat difficult to say whether she has some degree of underlying cognitive dysfunction which may make her significantly more sensitive to developing delirium which appears may be rather prolonged based on her prior episode. At this time hydromorphone is discontinued. Clonazepam for now is continued at the lower dose as previously to avoid withdrawal symptoms. Discussed with her daughter cautious pain control given she appears to be very sensitive to pain medications. Treat urinary tract infection. No metastatic disease noted on CT of the head. Daughter asked about additional evaluation for possible underlying Alzheimer's disease. Discussed with her this could be evaluated more closely in the outpatient office with neurology once she is closer to baseline with improvement of acute conditions. Possible pneumonitis noted on chest x-ray. Status: Acute (2) UTI (urinary tract infection): Complicated urinary tract infection contributing to acute encephalopathy. Due to pansensitive E. coli. Status: Acute (3) Acute kidney injury: Resolved. Avoid NSAIDs. Status: Acute (4) Elevated lipase: Is not tender on abdominal exam. Currently of unclear significance, no symptoms suggestive of pancreatitis Status: Acute (5) Elevated liver enzymes: No right upper quadrant tenderness on deep palpation. Hepatobiliary ultrasound is showing hypoechoic mass in the left posterior lobe of liver 2.1 x 1.4 cm suspicious for metastatic disease. Cholelithiasis. Normal bile ducts. Status: Acute (6) Thrombocytopenia: This appears to be stable. Baseline is unknown. Prior labs only from 2014. Peripheral smear obtained, without any finding of schistocytes, abnormal platelets or blasts. Monitor platelet levels. Requested for records from Dr. Luo's office with regards to recent platelet levels. Status: Acute (7) Pain of metastatic malignancy: Today she expresses pain in her back as the only thing bothering her. Added lidocaine patch. Continue hydrocodone. Avoid Dilaudid. Plans are to initiate radiation therapy for palliation of her severe pain due to metastatic disease to the spine. Appointment is set for Friday. If mental status continues to improve, perhaps should be able to proceed with the appointment. Better pain control may help her with improvement in mental status as well. Secondary to extensive bony metastases. Discussed with her daughter the difficulty of managing pain, with treatments leading to alteration in mental status, risk of respiratory depression. Continue hydrocodone to avoid withdrawal. Dilaudid is discontinued. Morphine IV for severe pain. Status: Chronic (8) Breast cancer metastasized to bone: Stage IV, see recent oncology notes for detailed plans, has been referred for palliative radiation therapy which is due to start on Friday the Continue follow-up with oncology in office regarding additional options for palliative chemotherapy. Status: Chronic (9) Anxiety: Status: Chronic (10) Hypertension: Continue amlodipine, nebivolol Status: Chronic (11) GERD (gastroesophageal reflux disease): Continue PPI Status: Chronic Additional A&P Information Inpatient admission Stop Dilaudid which was recently added IV fluids Serial neuro exams Continue hydrocodone and low dose of morphine in the event that she awakens and has severe pain Decrease home clonazepam by half Need to see if we can come up with pain medication regimen that is not as sedating if possible Requested urinalysis be done Nothing by mouth until more awake SCDs for DVT prophylaxis, no pharmacological prophylaxis secondary to thrombocytopenia We will continue Bystolic, Protonix, Aromasin, amlodipine from home medication list I have held ibuprofen secondary to thrombocytopenia Need to see if we can get some supervisor volunteer services evaluation for possible placement See if we can get prior labs for comparison of LFTs and platelet count PT OT and speech evaluations Supportive care otherwise CODE STATUS as per the patient's daughter is limited resuscitation with CPR and medications but no intubation If still here on Friday will need arrangements for transfer for radiation therapy Patient has plans in place for additional therapy options if approved by insurance and will need to have appropriate follow-up with Dr. Angel to address PLAN: Patient is scheduled for radiation therapy today and this will be performed. Continue ceftriaxone for now as patient's E. coli is susceptible. Consider transitioning to oral cefdinir once ready to be dismissed to nursing facility when family decides where. Attestations Medical Necessity Statement*: Patient with metastatic cancer, generalized weakness and UTI requires inpatient monitoring and treatment until appropriate placement is arranged. Coding Level of Care Code Acute Meters Superintendent for [facility] Fwd Diagnoses Acute encephalopathy G93.40 UTI (urinary tract infection) N39.0 Acute kidney injury N17.9 Elevated lipase R74.8 Elevated liver enzymes R74.8 Thrombocytopenia D69.6 Pain of metastatic malignancy G89.3 Breast cancer metastasized to bone C50.919; C79.51 Anxiety F41.9 Hypertension I10 GERD (gastroesophageal reflux disease) K21.9
--- NOTE | 2019-10-06 12:20 | PC.OT ---
OT Note: Pt refused OT today, Do I have to do it today? , I change my mind . When asked if she wants to work with therapy at all today, pt replied no . Will attempt OT tx tomorrow as able.
[2019-10-06] MEDS: ondansetron 2 mg/ML SDV 2 mL 4 MG IVP (17:14)
--- NOTE | 2019-10-06 18:23 | PC.NURSE ---
PT WENT TO THE [facility] FOR RADIATION AT APPROXIMATELY 1430 AND RETURNED AT APPROXIMATELY 1545. No complaints of pain or discomfort at this time. pt not wearing oxygen at this time, oxygen saturation was at 95% on room air. pt ambulated well to bedside commode and to the chair.
[2019-10-06] MEDS: CLONazepam 1 mg Tablet 0.5 MG PO (22:01)
[2019-10-07] VITALS (7 sets, daily range): BP systolic 131–159; BP diastolic 61–79; PULSE 64–78; RESP 16–19; TEMP 36.6–37.2; O2SAT 97–98
[2019-10-07] MEDS: D5-NS 0.45% + KCL 20 mEq 20 MEQ/1,000 ML BAG 100 MEQ IV (05:10)
[2019-10-07] MEDS: HYDROcodone-acetaminophen 5-325 mg Tablet 1 TAB PO (08:49)
[2019-10-07] MEDS: pantoprazole DR 40 mg Tablet PO (08:49)
[2019-10-07] MEDS: lidocaine 5% Patch 1 PATCH TOPICAL ×2 (08:49→21:46)
[2019-10-07] MEDS: amlodipine 10 mg Tablet PO (08:49)
[2019-10-07] MEDS: docusate sodium 100 mg Capsule PO ×2 (08:49→18:24)
--- NOTE | 2019-10-07 12:28 | PM.PN ---
Subjective Subjective: Interval history: Patient reports having chronic back pain and was unable to tolerate radiation simulation today. Reports that she is tired to be in pain. She was told that she should immediately call her nurse whenever she gets pain to get medication. We have discussed that she does not need to be in pain and she voiced understanding. She denies shortness of breath or chest pain. She does not want to have radiation simulation today but okay to try it tomorrow. Her platelets and hemoglobin are stable. I have discussed with the patient's daughter Shira this afternoon. She is trying to get in touch with Dr. Angel. We have discussed briefly regarding hospice and she agreed to get information from real estate valuer. Patient lost IV and does not want to be stuck again. Patient absolutely does not want to consider shelter facility and wants to go home. Vitals/I&O/Wt Last Vital Signs Temp 97.8 F 10/07/19 11:06 Pulse 69 10/07/19 11:06 Resp 18 10/07/19 11:06 BP 131/67 10/07/19 11:06 Pulse Ox 98 10/07/19 11:06 10/06/19 10/07/19 10/07/19 22:59 06:59 14:59 Intake Total 1360 / 1770 240 / 240 Output Total 550 / 1300 0 / 1300 Balance 810 / 470 0 / 470 240 / 240 Physical Exam Const: COMMON NORMALS: no acute distress and patient oriented x3 Resp: COMMON NORMALS: normal respiratory effort and clear to auscultation bilaterally AUSCULTATION: clear to auscultation bilaterally Cardio: COMMON NORMALS: regular rate, regular rhythm and S2 normal heart sound present RATE: regular rate RHYTHM: regular rhythm HEART SOUNDS: S2 normal heart sound present OTHER: No lower extremity edema GI: COMMON NORMALS: Normal to inspection, nondistended, normoactive bowel sounds present, Soft to palpation and non-tender PALPATION: Yes Soft to palpation Neuro: COMMON NORMALS: patient oriented x3 and no focal motor deficits (But generally appears weak) Data : 10/06/19 04:09 10/06/19 04:09 A&P Assessment and plan (1) Acute encephalopathy: This appears to be improving. Today she is more appropriate. She is oriented to being in the hospital in [place]. Does get the date wrong. At this time continue treatment of urinary tract infection. Optimization of pain control of metastatic cancer. Today she does complain of some back pain. Added lidocaine patch. Continue monitoring possible pneumonitis, although her breathing and saturation so far have been without reproach. COVID-19 testing negative. Family visiting her today. I attempted to discuss her condition with her , although he is very hard of hearing, and was having some difficulty during the discussion. Subsequently discussed also with her daughter. Discussed her condition with her oncologist. He will be expecting her in clinic. He is considering what additional options for palliative chemotherapy may be added. If her mental status continues to improve, should be able to proceed with her initial visit for setting up radiotherapy tomorrow. Acute encephalopathy secondary to urinary tract infection, as well as due to medication resulting in delirium. It appears multifactorial. Appears she has a urinary tract infection. Also concern for poor response to advancement of pain medicine to hydromorphone. Daughter reports she has had a previous episode of prolonged delirium in the past, which appears may have been related to pain medication and benzodiazepine. She states that her mother was in somewhat confused state, with some sundowning symptoms for several weeks, and improved only about 6 weeks ago after her pain medication and clasping doses were tapered down. She states that no other specific causes could be found responsible for her symptoms. She thought that her mother was progressing into Alzheimer's dementia as did her grandmother. She had sundowning symptoms at the time. She does state that her confusion and sundowning symptoms did resolve, although it took a long time. It is somewhat difficult to say whether she has some degree of underlying cognitive dysfunction which may make her significantly more sensitive to developing delirium which appears may be rather prolonged based on her prior episode. At this time hydromorphone is discontinued. Clonazepam for now is continued at the lower dose as previously to avoid withdrawal symptoms. Discussed with her daughter cautious pain control given she appears to be very sensitive to pain medications. Treat urinary tract infection. No metastatic disease noted on CT of the head. Daughter asked about additional evaluation for possible underlying Alzheimer's disease. Discussed with her this could be evaluated more closely in the outpatient office with neurology once she is closer to baseline with improvement of acute conditions. Possible pneumonitis noted on chest x-ray. Status: Acute (2) UTI (urinary tract infection): Complicated urinary tract infection contributing to acute encephalopathy. Due to pansensitive E. coli. Status: Acute (3) Acute kidney injury: Resolved. Avoid NSAIDs. Status: Acute (4) Elevated lipase: Is not tender on abdominal exam. Currently of unclear significance, no symptoms suggestive of pancreatitis Status: Acute (5) Elevated liver enzymes: No right upper quadrant tenderness on deep palpation. Hepatobiliary ultrasound is showing hypoechoic mass in the left posterior lobe of liver 2.1 x 1.4 cm suspicious for metastatic disease. Cholelithiasis. Normal bile ducts. Status: Acute (6) Thrombocytopenia: This appears to be stable. Baseline is unknown. Prior labs only from 2014. Peripheral smear obtained, without any finding of schistocytes, abnormal platelets or blasts. Monitor platelet levels. Requested for records from Dr. Luo's office with regards to recent platelet levels. Status: Acute (7) Pain of metastatic malignancy: Today she expresses pain in her back as the only thing bothering her. Added lidocaine patch. Continue hydrocodone. Avoid Dilaudid. Plans are to initiate radiation therapy for palliation of her severe pain due to metastatic disease to the spine. Appointment is set for Friday. If mental status continues to improve, perhaps should be able to proceed with the appointment. Better pain control may help her with improvement in mental status as well. Secondary to extensive bony metastases. Discussed with her daughter the difficulty of managing pain, with treatments leading to alteration in mental status, risk of respiratory depression. Continue hydrocodone to avoid withdrawal. Dilaudid is discontinued. Morphine IV for severe pain. Status: Chronic (8) Breast cancer metastasized to bone: Stage IV, see recent oncology notes for detailed plans, has been referred for palliative radiation therapy which is due to start on Friday Continue follow-up with oncology in office regarding additional options for palliative chemotherapy. Status: Chronic (9) Anxiety: Status: Chronic (10) Hypertension: Continue amlodipine, nebivolol Status: Chronic (11) GERD (gastroesophageal reflux disease): Continue PPI Status: Chronic Additional A&P Information Inpatient admission Stop Dilaudid which was recently added IV fluids Serial neuro exams Continue hydrocodone and low dose of morphine in the event that she awakens and has severe pain Decrease home clonazepam by half Need to see if we can come up with pain medication regimen that is not as sedating if possible Requested urinalysis be done Nothing by mouth until more awake SCDs for DVT prophylaxis, no pharmacological prophylaxis secondary to thrombocytopenia We will continue Bystolic, Protonix, Aromasin, amlodipine from home medication list I have held ibuprofen secondary to thrombocytopenia Need to see if we can get some director of rehabilitative services evaluation for possible placement See if we can get prior labs for comparison of LFTs and platelet count PT OT and speech evaluations Supportive care otherwise CODE STATUS as per the patient's daughter is limited resuscitation with CPR and medications but no intubation If still here on Friday will need arrangements for transfer for radiation therapy Patient has plans in place for additional therapy options if approved by insurance and will need to have appropriate follow-up with Dr. Angel to address PLAN: We will transition antibiotic to oral Omnicef. We will try small dose fentanyl patch to hopefully better control her pain We will try to discuss with Dr. Angel regarding plan of treatment. Will request hospice to see patient and discussed with patient's daughter. Attestations Medical Necessity Statement*: Patient with metastatic cancer requires inpatient monitoring and treatment until appropriate arrangements are made. Time Spent in Patient Care: 16 - 35 minutes Coding Level of Care Code Acute Clinical Interviewer for [facility] Fwd Diagnoses Acute encephalopathy G93.40 UTI (urinary tract infection) N39.0 Acute kidney injury N17.9 Elevated lipase R74.8 Elevated liver enzymes R74.8 Thrombocytopenia D69.6 Pain of metastatic malignancy G89.3 Breast cancer metastasized to bone C50.919; C79.51 Anxiety F41.9 Hypertension I10 GERD (gastroesophageal reflux disease) K21.9
--- NOTE | 2019-10-07 13:49 | PC.CHAP ---
Pastoral Care Encounter/Spiritual Assessment Type of Contact [] Declined combat rifle crewmember visit [] Patient/Family/Request visit [] Outpatient visit [] Follow-up visit [] Physician referral [] Code/Alert [x] Routine visit [] Staff referral [] Actively dying [] Patient sleeping [] Family support [] [] Out of room [] Palliative care [] [] Receiving care in room [] Pre-surgical visit [] Trauma [] Long length of stay [] ICU visit [] Other: Relational/Emotional Strength [x] Patient feels connected with others/family/visitors/staff [] Distress [] Loneliness/isolation [] Abandonment Spirituality of Patient [x] Person of Daisy [] Attends Sabianism of their Daisy [x] Believes in Prayer [x] Reads Bible or Episcopal materials [] There are Spiritual issues to be addressed Golf Ball Inspector Interventions [x] Prayer [x] Active listening [x] Non-anxious presence [x] Spiritual/emotional support [] Crisis/trauma care [] Spiritual counseling [] Bereavement support [] Provided bereavement packet [] Provided Bible/devotional materials [] Provided toy/stuffed animal, coloring book to patient or family member [] Provided Communion [] Anointing/[place] [] Salvation [x] Completed spiritual assessment [] Other: Impact on Illness or Injury [] Angry [] Fearful [] Anxious [] Often cries [] Exhaustion [] Unable to work [] Unable to attend shinto [] Unable to walk/stand [] Unable to read [x] Unable to drive [] Unable to eat/drink [] Unable to sleep [] Unable to be with family [] Patient intubated [] Other: Summary Time spent with patient 5 minutes
[2019-10-07] MEDS: fentaNYL 12 mcg Patch 1 PATCH TRANSDERMA (15:02)
[2019-10-07] MEDS: cefdinir 300 MG CAPSULE PO (18:23)
[2019-10-07] MEDS: bisacodyl 5 mg Tablet 10 MG PO (18:24)
--- NOTE | 2019-10-07 19:00 | PC.NURSE ---
pt complained of pain this am, this nurse gave prn pain medication and lidocain patch that is scheduled, this seemed to help with pain and no other complaints of pain were made. pt got up to bedside commode with nurse twice, she done well with minimal assist. pt did not seem to have much of an appetite, fentynal patch placed on right chest with a tagederm covering.
--- NOTE | 2019-10-07 19:05 | PC.NURSE ---
Pt and family had discussion with Dr Angel with this nurse present and Amy with family welfare social work professor to discuss treatment plan. pt was informed two different treatments the pt could do, hormone and chemotherapy, given information also about hospice if treatments are unsuccessful, pt stated she wanted to try treatment regardless of success rate. discussion of possibly pt staying in a duplex here in [place] for duration of treatment,per pt family, so that it wont be so hard on the pt.
[2019-10-07] MEDS: CLONazepam 1 mg Tablet 0.5 MG PO (21:45)
[2019-10-08 03:57] VITALS: BP 140/62; PULSE 67; RESP 18; TEMP 36.9; O2SAT 94
[2019-10-08 08:00] VITALS: BP 151/75; PULSE 73; RESP 18; TEMP 36.5; O2SAT 97
[2019-10-08] MEDS: docusate sodium 100 mg Capsule PO ×2 (08:08→18:03)
[2019-10-08] MEDS: cefdinir 300 MG CAPSULE PO ×2 (08:08→18:03)
[2019-10-08] MEDS: pantoprazole DR 40 mg Tablet PO (08:09)
[2019-10-08] MEDS: amlodipine 10 mg Tablet PO (08:09)
[2019-10-08] MEDS: lidocaine 5% Patch 1 PATCH TOPICAL (08:10)
[2019-10-08 11:24] VITALS: BP 168/65; PULSE 73; RESP 18; TEMP 36.8; O2SAT 96
--- NOTE | 2019-10-08 12:05 | P.PN_ITS ---
Subjective Subjective: Interval history: Patient reports feeling okay this morning. Denies shortness of breath or chest pain. Continues to have back pain but overall much better controlled. Discussed with Dr. Angel this morning over the phone. Plan to proceed with discharge tomorrow to house close to the [facility] for patient to have her radiation therapy which is going to happen on Friday. We are currently waiting hospital bed and other arrangements to be made prior to discharge. We will uptitrate fentanyl patch as needed but for now closely monitor patient's mental status and vitals. Patient will be staying with her family post discharge. Vitals/I&O/Wt Last Vital Signs Temp 98.2 F 10/08/19 11:24 Pulse 73 10/08/19 11:24 Resp 18 10/08/19 11:24 BP 168/65 10/08/19 11:24 Pulse Ox 96 10/08/19 11:24 10/07/19 10/08/19 10/08/19 22:59 06:59 14:59 Intake Total 120 / 360 60 / 420 120 / 120 Output Total 250 / 250 150 / 400 Balance -130 / 110 -90 / 20 120 / 120 Physical Exam Const: COMMON NORMALS: no acute distress and patient oriented x3 Resp: COMMON NORMALS: normal respiratory effort and clear to auscultation bilaterally AUSCULTATION: clear to auscultation bilaterally Cardio: COMMON NORMALS: regular rate, regular rhythm and S2 normal heart sound present RATE: regular rate RHYTHM: regular rhythm HEART SOUNDS: S2 normal heart sound present OTHER: No lower extremity edema GI: COMMON NORMALS: Normal to inspection, nondistended, normoactive bowel sounds present, Soft to palpation and non-tender PALPATION: Yes Soft to palpation Neuro: COMMON NORMALS: patient oriented x3 and no focal motor deficits (But generally appears weak) Data : 10/06/19 04:09 10/06/19 04:09 A&P Assessment and plan (1) Acute encephalopathy: This appears to be improving. Today she is more appropriate. She is oriented to being in the hospital in [place]. Does get the date wrong. At this time continue treatment of urinary tract infection. Optimization of pain control of metastatic cancer. Today she does complain of some back pain. Added lidocaine patch. Continue monitoring possible pneumonitis, although her breathing and saturation so far have been without reproach. COVID-19 testing negative. Family visiting her today. I attempted to discuss her condition with her , although he is very hard of hearing, and was having some difficulty during the discussion. Subsequently discussed also with her daughter. Discussed her condition with her oncologist. He will be expecting her in clinic. He is considering what additional options for palliative chemotherapy may be added. If her mental status continues to improve, should be able to proceed with her initial visit for setting up radiotherapy tomorrow. Acute encephalopathy secondary to urinary tract infection, as well as due to medication resulting in delirium. It appears multifactorial. Appears she has a urinary tract infection. Also concern for poor response to advancement of pain medicine to hydromorphone. Daughter reports she has had a previous episode of prolonged delirium in the past, which appears may have been related to pain medication and benzodiazepine. She states that her mother was in somewhat confused state, with some sundowning symptoms for several weeks, and improved only about 6 weeks ago after her pain medication and clasping doses were tapered down. She states that no other specific causes could be found responsible for her symptoms. She thought that her mother was progressing into Alzheimer's dementia as did her grandmother. She had sundowning symptoms at the time. She does state that her confusion and sundowning symptoms did resolve, although it took a long time. It is somewhat difficult to say whether she has some degree of underlying cognitive dysfunction which may make her significantly more sensitive to developing delirium which appears may be rather prolonged based on her prior episode. At this time hydromorphone is discontinued. Clonazepam for now is continued at the lower dose as previously to avoid withdrawal symptoms. Discussed with her daughter cautious pain control given she appears to be very sensitive to pain medications. Treat urinary tract infection. No metastatic disease noted on CT of the head. Daughter asked about additional evaluation for possible underlying Alzheimer's disease. Discussed with her this could be evaluated more closely in the outpatient office with neurology once she is closer to baseline with improvement of acute conditions. Possible pneumonitis noted on chest x-ray. Status: Acute (2) UTI (urinary tract infection): Complicated urinary tract infection contributing to acute encephalopathy. Due to pansensitive E. coli. Status: Acute (3) Acute kidney injury: Resolved. Avoid NSAIDs. Status: Acute (4) Elevated lipase: Is not tender on abdominal exam. Currently of unclear significance, no symptoms suggestive of pancreatitis Status: Acute (5) Elevated liver enzymes: No right upper quadrant tenderness on deep palpation. Hepatobiliary ultrasound is showing hypoechoic mass in the left posterior lobe of liver 2.1 x 1.4 cm suspicious for metastatic disease. Cholelithiasis. Normal bile ducts. Status: Acute (6) Thrombocytopenia: This appears to be stable. Baseline is unknown. Prior labs only from 2014. Peripheral smear obtained, without any finding of schistocytes, abnormal platelets or blasts. Monitor platelet levels. Requested for records from Dr. Luo's office with regards to recent platelet levels. Status: Acute (7) Pain of metastatic malignancy: Today she expresses pain in her back as the only thing bothering her. Added lidocaine patch. Continue hydrocodone. Avoid Dilaudid. Plans are to initiate radiation therapy for palliation of her severe pain due to metastatic disease to the spine. Appointment is set for Friday. If mental status continues to improve, perhaps should be able to proceed with the appointment. Better pain control may help her with improvement in mental status as well. Secondary to extensive bony metastases. Discussed with her daughter the difficulty of managing pain, with treatments leading to alteration in mental status, risk of respiratory depression. Continue hydrocodone to avoid withdrawal. Dilaudid is discontinued. Morphine IV for severe pain. Status: Chronic (8) Breast cancer metastasized to bone: Stage IV, see recent oncology notes for detailed plans, has been referred for palliative radiation therapy which is due to start on Friday the Continue follow-up with oncology in office regarding additional options for palliative chemotherapy. Status: Chronic (9) Anxiety: Status: Chronic (10) Hypertension: Continue amlodipine, nebivolol Status: Chronic (11) GERD (gastroesophageal reflux disease): Continue PPI Status: Chronic Additional A&P Information Inpatient admission Stop Dilaudid which was recently added IV fluids Serial neuro exams Continue hydrocodone and low dose of morphine in the event that she awakens and has severe pain Decrease home clonazepam by half Need to see if we can come up with pain medication regimen that is not as sedating if possible Requested urinalysis be done Nothing by mouth until more awake SCDs for DVT prophylaxis, no pharmacological prophylaxis secondary to thrombocytopenia We will continue Bystolic, Protonix, Aromasin, amlodipine from home medication list I have held ibuprofen secondary to thrombocytopenia Need to see if we can get some loan services professional evaluation for possible placement See if we can get prior labs for comparison of LFTs and platelet count PT OT and speech evaluations Supportive care otherwise CODE STATUS as per the patient's daughter is limited resuscitation with CPR and medications but no intubation If still here on Friday will need arrangements for transfer for radiation therapy Patient has plans in place for additional therapy options if approved by insurance and will need to have appropriate follow-up with Dr. Angel to address PLAN: Continue current monitoring and treatment. Daughter wants to hold off on hospice at this point and wants to continue with radiation therapy. Continue antibiotic for now. Patient did not want to be stuck with needles to have lab work therefore labs will not be ordered. Attestations Medical Necessity Statement*: Patient with metastatic cancer requires close inpatient monitoring and treatment until appropriate arrangements are made for discharge. Time Spent in Patient Care: 16 - 35 minutes Coding Level of Care Code Acute Cosmetician Apprentice for Chg Fwd Diagnoses Acute encephalopathy G93.40 UTI (urinary tract infection) N39.0 Acute kidney injury N17.9 Elevated lipase R74.8 Elevated liver enzymes R74.8 Thrombocytopenia D69.6 Pain of metastatic malignancy G89.3 Breast cancer metastasized to bone C50.919; C79.51 Anxiety F41.9 Hypertension I10 GERD (gastroesophageal reflux disease) K21.9
--- NOTE | 2019-10-08 13:32 | PC.CHAP ---
Pastoral Care Encounter/Spiritual Assessment Type of Contact [x] Declined business services vice president visit [] Patient/Family/Request visit [] Outpatient visit [] Follow-up visit [] Physician referral [] Code/Alert [x] Routine visit [] Staff referral [] Actively dying [] Patient sleeping [] Family support [] [] Out of room [] Palliative care [] [] Receiving care in room [] Pre-surgical visit [] Trauma [x] Long length of stay [] ICU visit [] Other: Relational/Emotional Strength [] Patient feels connected with others/family/visitors/staff [] Distress [] Loneliness/isolation [] Abandonment Spirituality of Patient [] Person of Daisy [] Attends Buddhism of their Daisy [] Believes in Prayer [] Reads Bible or Synagogue materials [x] There are Spiritual issues to be addressed Sheet Pile Driver Operator Interventions [] Prayer [x] Active listening [x] Non-anxious presence [] Spiritual/emotional support [] Crisis/trauma care [] Spiritual counseling [] Bereavement support [] Provided bereavement packet [] Provided Bible/devotional materials [] Provided toy/stuffed animal, coloring book to patient or family member [] Provided Communion [] Anointing/[place] [] Salvation [x] Completed spiritual assessment [] Other: Impact on Illness or Injury [] Angry [] Fearful [x] Anxious [] Often cries [] Exhaustion [] Unable to work [] Unable to attend bahai [] Unable to walk/stand [] Unable to read [] Unable to drive [] Unable to eat/drink [] Unable to sleep [] Unable to be with family [] Patient intubated [] Other: Summary Patient declined prayer. Seemed anxious about the business services vice president's presence and said they were fine. Sheet Pile Driver Operator asked if there was anything that he could do for the patient and she stated that there wasn't anything she wanted or needed from the business services vice president. Sheet Pile Driver Operator informed the patient and family that if there was anything we could do for them that they could let their nurse know and they could contact the chaplains for them. The family thanked the business services vice president for coming by. Patient visit was conducted by Sheet Pile Driver Operator Alfonzo Barone. Time spent with patient 5 minutes
[2019-10-08 16:00] VITALS: BP 185/81; PULSE 83; RESP 18; TEMP 37.1; O2SAT 94
--- NOTE | 2019-10-08 17:36 | PC.PT ---
PT note; patient is being discharged from physical therapy due to lack of participation/unwilling to participate with physical therapy ?3 consecutive days; will revisit if reordered.
--- NOTE | 2019-10-08 17:46 | PC.NURSE ---
Clarification of void documented: Patient voided in BSC and the toilet paper in the bottom absorbed a large amount of urine, however 100 mL was able to be measured.
[2019-10-08] MEDS: ondansetron 2 mg/ML SDV 2 mL 4 MG IVP (18:03)
[2019-10-08 19:59] VITALS: BP 150/76; PULSE 74; RESP 19; TEMP 36.6; O2SAT 96
[2019-10-08] MEDS: CLONazepam 1 mg Tablet 0.5 MG PO (21:04)
[2019-10-09] VITALS (7 sets, daily range): BP systolic 132–162; BP diastolic 68–84; PULSE 62–90; RESP 18–21; TEMP 36.4–36.7; O2SAT 93–99
[2019-10-09] MEDS: amlodipine 10 mg Tablet PO (08:37)
[2019-10-09] MEDS: lidocaine 5% Patch 1 PATCH TOPICAL (08:37)
[2019-10-09] MEDS: pantoprazole DR 40 mg Tablet PO (08:37)
[2019-10-09] MEDS: docusate sodium 100 mg Capsule PO (08:37)
[2019-10-09] MEDS: cefdinir 300 MG CAPSULE PO (08:41)
--- NOTE | 2019-10-09 11:04 | PM.DCS ---
Discharge Providers Date of Admission: 10/02/19 17:22 Date of Discharge: October 09, 2019 Attending Provider at Admission: Nguyễn Singh Attending Provider at Discharge: Alfonzo Cerna MD Primary Care Provider: Fernando Luo DO Diagnoses at Discharge Discharge Diagnosis (1) Acute encephalopathy: Status: Acute (2) UTI (urinary tract infection): Status: Acute (3) Acute kidney injury: Status: Acute (4) Elevated lipase: Status: Acute (5) Elevated liver enzymes: Status: Acute (6) Thrombocytopenia: Status: Acute (7) Pain of metastatic malignancy: Status: Chronic (8) Breast cancer metastasized to bone: Status: Chronic Problem details: 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 Received adjuvant chemo, radiation, hormonal therapy. (9) Anxiety: Status: Chronic (10) Hypertension: Status: Chronic (11) GERD (gastroesophageal reflux disease): Status: Chronic Reason for Visit Reason for Visit: URINARY RETENTION Hospital Course Discharge Summary: Patient with metastatic breast cancer to bone presented encephalopathic with evidence of urinary tract infection. She was treated with antibiotics and gradually improved. Her pain medications were readjusted and she was started on fentanyl patch. This was discussed with Dr. Angel who will follow up with patient post discharge. She is being dismissed to arranged housing close to [facility] and will follow up with radiation oncologist on Friday for simulation and first radiation therapy. She had adequate antibiotic treatment therefore no antibiotic will be continued. We will change omeprazole to Protonix 40 mg daily for better reflux symptoms control. We will continue ibuprofen as it appears to be working well during nighttime. This morning patient denies shortness of breath or chest pain. Denies abdominal pain. Reports that she had bowel movement earlier today. Continues to have back pain which she had for a long period of time. Rates it as moderate. We have discussed that she has medications available but they should be held if patient starts getting lethargic. Patient voiced understanding. Physical Exam Const: COMMON NORMALS: no acute distress Resp: COMMON NORMALS: normal respiratory effort and clear to auscultation bilaterally AUSCULTATION: clear to auscultation bilaterally Cardio: COMMON NORMALS: regular rate, regular rhythm and S2 normal heart sound present RATE: regular rate RHYTHM: regular rhythm HEART SOUNDS: S2 normal heart sound present OTHER: No lower extremity edema GI: COMMON NORMALS: Normal to inspection, nondistended, normoactive bowel sounds present, Soft to palpation and non-tender PALPATION: Yes Soft to palpation Neuro: COMMON NORMALS: no focal motor deficits Discharge Data Data Completed and Pending: Completed Studies During Hospitalization Category Date Time Status CT guided uche yap [id number] Rout ine Cat Scan 10/06/19 13:[address] head wo/w con [id number] Urgent Cat Scan 10/02/19 15:06 Completed XR chest 1V bob ble [id number] Stat Exams 10/02/19 15:08 Completed US gall bladder 7 6706 Routine Ultrasound 10/04/19 21:40 Completed Vitals: Last Vital Signs Temp 97.7 F 10/09/19 07:24 Pulse 64 10/09/19 07:24 Resp 18 10/09/19 07:24 BP 140/84 10/09/19 07:24 Pulse Ox 93 10/09/19 07:24 Discharge Plan Discharge Patient Disposition: Home Health Service Condition: Stable Prescriptions: New fentanyl 12 mcg/hr Patch 72 Hour 1 patch transdermal Q72H Qty: 3 RF: 0 clonazepam 1 mg Tablet 0.5 mg PO BEDTIME Qty: 10 RF: 0 pantoprazole 40 mg Tablet,Delayed Release (Dr/Ec) 40 mg PO DAILY Qty: 30 RF: 0 lidocaine [Lidoderm] 5 % Adhesive Patch,Medicated 1 patch topical O12O12 Qty: 7 RF: 0 sennosides-docusate sodium [Lax Stool Softener With Senna] 8.6-50 mg tablet 1 tab-cap PO BID Qty: 60 RF: 0 Continued multivitamin Tablet 1 tab PO DAILY RF: 0 potassium chloride 10 mEq capsule, extended release 10 meq PO DAILY RF: 0 ibuprofen 200 mg Capsule 200 mg PO BEDTIME PRN (Reason: Pain) RF: 0 Glucosamine 500 mg Tablet 1,000 mg PO DAILY RF: 0 hydromorphone 2 mg tablet 0.5 - 1 mg PO Q4H PRN (Reason: Pain) RF: 0 exemestane 25 mg tablet 25 mg PO DAILY RF: 0 amlodipine 10 mg tablet 10 mg PO DAILY RF: 0 vitamin E 400 unit Capsule 400 unit PO DAILY RF: 0 Bystolic 10 mg tablet 10 mg PO DAILY RF: 0 hydrocodone-acetaminophen 5-325 mg tablet 1 tab PO BID PRN (Reason: Pain) Qty: 20 RF: 0 Discontinued clonazepam 1 mg tablet 1 mg PO BEDTIME RF: 0 omeprazole 20 mg capsule,delayed release(DR/EC) 20 mg PO DAILY RF: 0 Discharge Orders: Discharge Order (Routine); Ordered 10/09/19 Ordered By: Alfonzo Cerna Other Ambulatory Orders: DME: Commode (Order) Location: None Selected Ordered By: Alfonzo Cerna DME: Hospital Bed (Order) Location: None Selected Ordered By: Alfonzo Cerna DME: Wheelchair (Order) Location: None Selected Ordered By: Alfonzo Cerna Ref[facility]: [facility] [place] [facility] [place] [facility] [place]) [Outside] Discharge Diet: Advance as tolerated Discharge Activity: Increase activity as tolerated Activity Restrictions/Additional Instructions: Please call your doctor or present to emergency department if your condition worsens or you develop diarrhea, lightheadedness, fatigue or see blood in your stool or black stool. Please follow-up with radiation oncologist and Dr. Angel on Friday for radiation therapy. Discharge Attestations Time Spent in Discharge Care*: greater than 30 min Quality Metrics Clinical Quality Measures During this hospital stay, did patient experience: None Coding Level of Care Code Acute Manager Pricing for Chg Fwd Diagnoses Acute encephalopathy G93.40 UTI (urinary tract infection) N39.0 Acute kidney injury N17.9 Elevated lipase R74.8 Elevated liver enzymes R74.8 Thrombocytopenia D69.6 Pain of metastatic malignancy G89.3 Breast cancer metastasized to bone C50.919; C79.51 Anxiety F41.9 Hypertension I10 GERD (gastroesophageal reflux disease) K21.9
== END 2019-10-09 12:45 | disposition home health service (06) | DRG 690 ==
LOC: ER 14:28 → MEDSURG 17:43
PROVIDERS: Family Medicine; Hospitalist; Admitting Provider Internal Medicine; PCP Internal Medicine; Visit Provider Internal Medicine
DX: N39.0 Urinary tract infection, site not specified (principal); G93.40 Encephalopathy, unspecified; C79.51 Secondary malignant neoplasm of bone; N17.9 Acute kidney failure, unspecified; Z17.0 Estrogen receptor positive status [ER+]; C50.911 Malignant neoplasm of unspecified site of right female breast; G89.3 Neoplasm related pain (acute) (chronic); D69.6 Thrombocytopenia, unspecified; F41.9 Anxiety disorder, unspecified; K21.9 Gastro-esophageal reflux disease without esophagitis; I10 Essential (primary) hypertension; T40.605A Adverse effect of unspecified narcotics, initial encounter; R41.0 Disorientation, unspecified; K80.20 Calculus of gallbladder without cholecystitis without obstruction; R16.0 Hepatomegaly, not elsewhere classified; B96.20 Unspecified Escherichia coli [E. coli] as the cause of diseases classified elsewhere; Z92.21 Personal history of antineoplastic chemotherapy; Z79.811 Long term (current) use of aromatase inhibitors; Z79.891 Long term (current) use of opiate analgesic
CPT/HCPCS: 12345; 36415; 70470; 71045; 76705; 77300; 77301; 77334; 77338; 77386; 77470; 80053; 80500; 81001; 82550; 83605; 83690; 85025; 87077; 87086; 87186; 87426; 87635; 92523; 92610; 93005; 96375; 97110; 97162; 97167; 97530; 97535; 99215; 99282; J0696; J2270; J2405; J7030; Q9967; S0156

== ENCOUNTER 2019-10-18 05:36 | Outpatient (RCR) | payer MEDICARE, OTHER, SELFPAY ==
--- NOTE | 2019-10-12 14:21 | ONCRAD TMN_ITS ---
Radiation Oncology Weekly Treatment Management Patient: Sophie Lopez MR#: [id number] : 1940 Age: 79 Sex: Female Dictated by: Dr. Shiva Hurst Date of Service: 10/12/2019 Referring Physician(s) : Dr. Fernando Luo Diagnosis: -) Right Breast (dx 01/2016): ypT1c ypN3a grade 3 infiltrating ductal carcinoma, ER/SD strongly positive, HER-2/marissa negative. She was treated with neoadjuvant endocrine therapy (anastrozole) followed by a right modified radical mastectomy (06/2016). Pathology revealed grade 3 infiltrating ductal carcinoma measuring 1.9 x 1.2 cm, negative postsurgical margins, positive lymphovascular invasion, and 34 of 37 lymph nodes were positive. She then received 4 cycles of adjuvant chemotherapy followed by comprehensive radiation therapy to the right chest wall and draining lymphatics (March in [place] ~33 fractions in 2016). This was followed by further endocrine therapy. Per medical report, the patient experienced right chest wall tumor recurrence in 03/2019 which was treated with surgical resection and ???6 additional fractions of radiation??? (complete radiation records have been requested). In October 2018, she had PET/CT evidence of metastasis in multiple sites of bone. She was then treated with fulvestrant. -) Left Breast: Status post left modified radical mastectomy (06/1990). Pathology revealed infiltrating ductal carcinoma, 2 out of 9 lymph nodes positive, ER strongly positive, SD negative. She then received 6 cycles of CAF adjuvant systemic therapy followed by 5 years of adjuvant endocrine therapy via a clinical trial (tamoxifen). The patient believes that she did not receive adjuvant radiation therapy. Radiotherapy to date: Course: T Spine 2019, Treatment Site: [id number], Ref. ID: [id number], Energy: 15X/6X, Dose/Fx (cGy): 300, #Fx: , Dose Correction (cGy): 0, Total Dose (cGy): 300, Start Date: 10/11/2019, Elapsed Days: 1 Reason for visit: The patient is being seen today as part of their regularly scheduled weekly on treatment visits to assess for acute toxicities from radiotherapy. Interim History: The patient reports that her pain is now well controlled. She continues to have poor appetite. She is tolerating radiation therapy without difficulty. Current Medications: Abemaciclib, amLODIPine Besylate, aromasin, bystolic, clonazePAM, dilaudid, duragesic-12, glucosamine, hYDROcodone-Acetaminophen, ibuprofen, multivitamin, omeprazole, ondansetron, potassium Chloride ER, sertraline HCl, tums, vitamin E. Allergies: No Known Allergies Current Complaints/Review of Systems: Constitutional - Complains of a poor appetite. Complains of mild fatigue. Denies fever. ENMT - Denies dysphagia. Gastrointestinal - Denies nausea and vomiting. Vital Signs: Performed on 10/12/2019 11:14 AM Height - 63.00 in, Temperature - 98.1 f, Pulse - 63, Respiration - 18, O2 Sat - 92 % (low), Pain - 0 and BP - 135/ 68 mm(hg). Physical Exam: Appears stable, no skin erythema or desquamation. Performance Status: 3 - Capable of only limited self-care, confined to bed or chair more than 50% of waking hours. (ECOG) Lab: None pending in Radiation Oncology. Imaging: Radiation therapy imaging related to accurate target localization (i.e. KV, MV and CBCT) was reviewed. Appropriate changes, if any, were made to ensure treatment accuracy. Plan: The patient is tolerating therapy reasonably well. Radiotherapy will continue as planned. CPT: 10081 Signed by: Dr. Shiva Hurst 10/12/2019 2:19:46 PM
== END 2019-10-18 23:59 | disposition home or self-care (01) ==
LOC: ONCMED 05:36
PROVIDERS: PCP Internal Medicine; Visit Provider Radiology Radiation Oncology
DX: Z51.0 Encounter for antineoplastic radiation therapy (principal); C50.811 Malignant neoplasm of overlapping sites of right female breast; C79.51 Secondary malignant neoplasm of bone; Z17.0 Estrogen receptor positive status [ER+]; Z79.811 Long term (current) use of aromatase inhibitors; Z90.13 Acquired absence of bilateral breasts and nipples; Z85.3 Personal history of malignant neoplasm of breast
CPT/HCPCS: 77386

== ENCOUNTER 2019-10-20 06:00 | Outpatient (RCR) | payer OTHER, MEDICARE, SELFPAY ==
[2019-10-19] MEDS: dexamethasone 10 mg/mL INJ 6 MG IV (14:56)
[2019-10-19] MEDS: sodium chloride 0.9% 1,000 ML 999 ML IV (14:56)
[2019-10-19 15:25] LABS: Basophils % 0.3 %; Hematocrit 35.4 % (37.0-47.0); Hemoglobin 11.3 g/dL (11.5-15.3); Lymphocytes # 0.3 10^3/uL (0.8-4.8); Lymphocytes % 2.6 %; Mean Corpuscular HGB Conc 31.9 g/dL (30.0-36.0); Mean Corpuscular Hemoglobin 30.5 pg (28.0-34.0); Mean Corpuscular Volume 95.4 fL (81-99); Monocytes # 1.2 10^3/uL (0.2-0.9); Monocytes % 11.3 %; Neutrophils # 9.34 10^3/uL (1.8-7.7); Neutrophils % 84.8 %; Nucleated Red Blood Cells # 0.1 /100WBC; Nucleated Red Blood Cells % 0.5 %; Platelet Count 32 10^3/cmm (130-400); Red Blood Count 3.71 10^6/uL (4.1-5.3); Red Cell Distribution Width 20.9 % (12.1-15.1)
[2019-10-19 15:45] LABS: Alanine Aminotransferase 97 U/L (0-33); Albumin Level 3.3 g/dL (3.5-5.2); Alkaline Phosphatase 160 IU/L (35-105); Aspartate Amino Transferase 319 U/L (0-32); Blood Urea Nitrogen 56 mg/dL (8-23); Calcium 8.9 mg/dL (8.5-10.5); Carbon Dioxide 20 mmol/L (22-29); Chloride 100 mmol/L (98-107); Globulin 3.7 g/dL (1.3-4.6); Glucose 108 mg/dL (65-115); Osmolality Calculated 283 mOsm/kg (285-295); Sodium 137 mmol/L (136-145)
[2019-10-19 16:07] LABS: Slide Review Slide Review Perform
--- NOTE | 2019-10-20 19:43 | ONC FU_ITS ---
Dr. Angel Patient Follow-Up Note Patient: Sophie Lopez Unit #: [id number]: 1940 Dicatated By: Fernando Angel M.D.Date of Visit:Oct 20, 2019 Onc Med Follow-up/Prog Note Chief Complaint: Breast cancer. 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 She has a history of having undergone left modified radical mastectomy for node positive, ER positive breast cancer in 1990. More detailed information pertaining that procedure is not available. She did receive adjuvant chemotherapy with 6 cycles of CAF followed by 5 years of adjuvant hormonal therapy with tamoxifen. In December 2015 she was found to have an abnormal mammogram of the right breast. Ultrasound-guided needle core biopsy of a right breast mass at the 3 o'clock position on 02/02/2016 showed grade 1 infiltrating ductal carcinoma which was ER positive at 91% and TN positive at 92%. It was negative for overexpression of HER-2/marissa by IHC and by FISH. Core needle biopsy of a right axillary lymph node showed metastatic adenocarcinoma. She was given neoadjuvant hormonal therapy with anastrozole, and she then underwent right modified radical mastectomy on 06/27/2016. Pathology on the mastectomy showed grade 3 infiltrating ductal carcinoma measuring 1.9 x 1.2 cm, located in the upper middle region of the breast. There was involvement in 34 of 37 lymph nodes. She was given 4 cycles of adjuvant chemotherapy following the mastectomy, though the available records do not indicate the specific regimen which was administered. She then underwent postoperative radiation to the right chest wall, supraclavicular fossa, and axilla. She also continued adjuvant hormonal therapy with anastrozole. A restaging PET/CT on 10/26/2018 showed several sites of metastatic disease in the bone, including the T7 and L1 vertebral bodies, possible involvement in the L4 vertebral body, and involvement in the left ischium. At that point her hormonal therapy was changed to fulvestrant, which she has continued monthly. In March 2019 she was given some additional radiation for a small area of recurrence in the right chest wall. Her other medical illnesses have been limited to hypertension, GERD, and some chronic anxiety. She is a non-smoker. I had seen her on 09/21/2019 for further management of her breast cancer. At that time she was having pain in multiple areas, and a subsequent staging PET/CT on 09/25/2019 confirmed significant disease progression with evidence of widespread osseous metastatic disease. An index lesion in the left sacrum measured 3.0 cm with SUV 7.1. There was noted to be involvement throughout the spinal column, including destruction of the T6 vertebral body with pathologic fracture. Other sites of involvement include the pelvis, proximal femurs, left clavicle, and proximal humeri. Inhomogeneous activity was noted in the liver, but with no discrete lesion identified. I had seen her for a follow-up visit on 09/28/2019. Given the PET/CT findings, I had recommended that she begin second line hormonal therapy with exemestane in combination with abemaciclib. I have also recommended that she see the radiation oncologist for palliative radiation, as a significant component of her pain did appear to localize to the T6 area. In the meantime, she did start the exemestane pending verification of insurance coverage for the abemaciclib. Her further management was complicated by the fact that her performance status had declined significantly. She also had very poor tolerance for opiate pain medication, and she ended up being admitted to the hospital again on 10/02/2019. Following discharge, she did attempt to restart radiation. We were able to make arrangements for her to stay here locally for the treatment. She had come in yesterday for radiation treatment and at that point she appeared to have significant further decline in her general condition. She was given IV hydration. Her laboratory studies were rechecked and her been a significant decline in her platelet count to 32,000. Her BUN and creatinine were elevated at 56 and 1.9 mg/dL. Liver enzymes had further increased and her bilirubin level was borderline high. With those findings, I had recommended to her daughter that we transition her to symptomatic/supportive care. She is seen in the housing facility today to discuss her further management with her family. Medications: amLODIPine Besylate 1 Tablet (of 10 mg) Oral at bedtime, Bystolic 1 Tablet (of 10 mg) Oral daily, clonazePAM 1 Tablet (of 0.5 mg) Oral at bedtime, Glucosamine 2 Capsule Oral daily, HYDROcodone-Acetaminophen 1 Tablet (of 5-325 mg) Oral b.i.d. PRN, Ibuprofen 1 Tablet (of 200 mg) Oral at bedtime, Multivitamin 1 Tablet Oral daily, Omeprazole 1 Tablet (of 20 mg) Tablet, enteric coated Oral daily, Potassium Chloride ER 1 Capsule (of 10 meq) Capsule, controlled release Oral daily, Sertraline HCl 1 Tablet (of 25 mg) Oral daily, Tums 1 Tablet, chewable Oral PRN, Vitamin E 1 Capsule Oral daily Allergies: No Known Allergies. Impression: 1. Patient with grade 3 infiltrating ductal carcinoma of the right breast, ER/TN positive and HER-2/marissa negative, initially diagnosed in January 2016. 2. She was given neoadjuvant hormonal therapy followed by right modified radical mastectomy on 06/27/2016. Her disease was pathologic stage IIIB (pT1c, pN3, M0). She was given adjuvant chemotherapy followed by postoperative radiation to the right chest wall, supraclavicular fossa, and axilla, and she then continued adjuvant hormonal therapy with anastrozole. 3. She had PET/CT evidence of stage IV disease in October 2018 with multiple sites of bone involvement. Her hormonal therapy at that point was changed to fulvestrant. 4. She received additional radiation to the right chest wall for a small area of recurrence in March 2019. 5. She had previous treatment for node positive, ER positive infiltrating ductal carcinoma of the left breast which included left modified radical mastectomy 1990 followed by adjuvant chemotherapy with 6 cycles of CAF followed by 5 years of adjuvant tamoxifen. Her other medical illnesses include: 6. Hypertension. 7. GERD. 8. Chronic anxiety. The patient has evidence of disease progression on fulvestrant with her restaging PET/CT on 09/25/2019 showing evidence of widespread bony metastatic disease. There was associated destruction of the T6 vertebral body with pathologic fracture. She is having significant pain at multiple sites and she has fairly rapidly declining performance status. Her pain management has been problematic, as she had one episode of suspected opiate related [employer] side effects. With the PET/CT findings I had recommended cycling hormonal therapy with exemestane in combination with abemaciclib. She did start the exemestane pending verification of insurance coverage for the abdominal cycle. In addition, she was seen by Dr. Hurst, and we did attempt to administer palliative radiation. Her management, though, was complicated by her poor tolerance for opiate pain medication and by further decline in her performance status, which occurred quite rapidly. As of yesterday her laboratory studies showed progressive thrombocytopenia, increasing liver enzymes, and declining renal function consistent with disease progression. She was given IV hydration, but with the significant decline in her overall condition I had recommended to the daughter that we transition to symptomatic/supportive care. Plan: I reviewed the laboratory findings with her , and I discussed the fact that her prognosis now is extremely poor, that her cancer is not going to be treatable, and that we need to focus her treatment on comfort measures. As of yesterday I had prescribed Roxanol at a very low dosage (0.25 mL), and she has been sleeping comfortably after just 1 dose earlier today. Patient's daughter is aware that she can repeat that as needed. I have recommended hospice referral, and they are agreeable, and I will try and get that arranged today. The patient's family is in general agreement with this plan. Signed By: Fernando Angel M.D. <<Signature on File>>
== END 2019-11-17 23:59 | disposition home or self-care (01) ==
LOC: ONCMED 06:00
PROVIDERS: PCP Internal Medicine; Visit Provider Internal Medicine Medical Oncology
DX: Z51.0 Encounter for antineoplastic radiation therapy (principal); C50.811 Malignant neoplasm of overlapping sites of right female breast; Z17.0 Estrogen receptor positive status [ER+]; C79.51 Secondary malignant neoplasm of bone; I10 Essential (primary) hypertension; K21.9 Gastro-esophageal reflux disease without esophagitis; F41.9 Anxiety disorder, unspecified
CPT/HCPCS: 77336; 80053; 85025; 96361; 96365; 96367; 96375; J1100; J2405; J7030